=== PATIENT | male | born 1965 | race Caucasian/White ===

== ENCOUNTER 2020-06-07 12:49 | Inpatient (IN) | payer OTHER, SELFPAY ==
[2020-06-07] VITALS (9 sets, daily range): BP systolic 150–167; BP diastolic 88–115; PULSE 88–104; RESP 16–18; TEMP 36.4–37.3; O2SAT 94–99; BMI 33.7; BMI 33.0; BMI 33.1
--- NOTE | 2020-06-07 13:00 | CT_ITS ---
STUDY: CT SOFT TISSUE NECK WITH CONTRAST REASON FOR EXAM: Male, 55 years old. RIGHT SIDED NECK ABSCESS. H/O BACKED UP SALIVARY GLAND 2 WKS AGO. SUCKED ON LEMON AND IT WENT AWAY, CAME BACK WORSE. RADIATION DOSAGE (If Supplied By Facility): CTDIvol = ( 18.58 ) mGy, DLP = ( 589.57 ) mGycm TECHNIQUE: The patient was scanned in a multi-detector CT scanner. High resolution transaxial imaging was performed following intravenous administration of IV 100mL Isovue-370. Sagittal and coronal images were reconstructed. Individualized dose optimization techniques were used for this CT. COMPARISON: None. FINDINGS: Normal bilateral parotid glands. Normal bilateral accelerator technician spaces. Normal bilateral parapharyngeal spaces. Normal bilateral carotid spaces. There is diffuse inhomogeneous enlargement of the right submandibular gland. There is a 1.8 cm x 1.5 cm rounded density of decreased attenuation in the superior medial portion of the gland. Abscess should be excluded. There is evidence of the diffuse thickening of the overlying skin on the right mandibular region as well as diffuse inflammatory changes in the surrounding subcutaneous tissues. There is enlargement of the right submandibular lymph nodes. Inflammatory changes extend into the soft tissues along the medial aspect of the right mandible. Normal visualized nasopharynx. Normal retropharyngeal space. Normal perivertebral space. Normal visualized bilateral faucial tonsils. The visualized tongue, tongue base and oropharynx are normal. There are minimally enlarged lymph nodes of the neck, with preservation of normal butch architecture, consistent with a reactive lymph hyperplasia. There is no demonstrated solid or cystic mass lesion. There is no abnormal contrast enhancement. Normal epiglottis, bilateral vallecula and hypopharynx. The pre-epiglottic and paraglottic adipose spaces are normal. Normal visualized bilateral piriform sinuses, aryepiglottic folds, vocal cords, and arytenoid-cricoid articulations. Normal subglottic trachea. Normal bilateral lobes of the thyroid gland. Normal visualized pulmonary apices. Normal visualized paranasal sinuses. There is degenerative changes of the cervical spine. CT/Soft Tissue Neck WITH Contrast IMPRESSION: Diffuse enlargement of the right submandibular gland with findings suggestive of a localized abscess along its superior medial portion. There is evidence of surrounding inflammatory changes involving the skin and subcutaneous tissues. This extends into the medial aspect of the right mandible. Enlarged lymph nodes. Electronically Signed: Case Rose, at 13:57 EST , Service support ,
--- NOTE | 2020-06-07 13:04 | ED.VISSUMM ---
- ER Visit Summary Date of Service: 06/07/20 Chief Complaint: Neck abscess History of Present Illness: The patient is a 55 M who has an abscess on the right side of the neck. He has been following with Dr. Campos with ENT. He has been on Augmentin at home. Initially he started to have some improvement with this but now is getting worse. It is on the right side of his neck. When he woke up today he was concerned that it may be impinging on his airway as he has having some issues swallowing. He spoke with his ear nose and throat doctor who directed him here for further evaluation. He has not had any imaging studies yet for this. He has not had a fever with this. Physical Examination: Vital signs reviewed. HEENT exam reveals pupils that are equal. Extraocular motions are intact. He does have moist mucous membranes. His throat is nonerythematous. He is handling his secretions normally. His neck does have an abscess and mass on the right side which is erythematous on the skin. It is firm and not particularly mobile. It measures about 7 x 7 cm. He does have trismus. Heart is regular rate and rhythm. Lungs are clear. Abdomen is soft. Skin exam shows the erythema around this mass on the right side of the neck. His GCS is 15. His phonation is normal. Speech is clear without dysarthria. He has no other neurologic deficits. Test Results: White blood cell count 9.9. BUN 22. Creatinine normal. CT scan reveals a right submandibular gland abscess with surrounding inflammatory changes. Emergency Department Course and Treatment: The patient will be given IV doses of Decadron and Unasyn. I did discuss with Dr. Campos with ENT. He is want to see the patient here in the emergency department. He would like the patient admitted for some IV antibiotics as well. I did discuss with hospitalist for admission. Treatment Plan: [] Disposition: Discharge Impression: Right submandibular gland abscess Failure of outpatient treatment This note was generated with [employer] dictation software. It may contain incorrect words, spelling, and punctuation that were not noted in review of the chart prior to signing ED Disposition - Plan for ED Patient: Referrals: Renata Palencia DO [Primary Care Provider] -
[2020-06-07 13:21] LABS: Absolute Lymphocyte Count 1.11 X10^3/uL (0.83-4.51); Absolute Neutrophil Count 7.7 X10^3/uL (2.0-7.7); Basophil# 0.03 X10^3/uL; Basophil% 0.3 % (0-1); Eosinophil# 0.03 X10^3/uL; Eosinophils% 0.3 % (0-5); Hematocrit 41.4 % (40-54); Hemoglobin 13.2 g/dL (13.0-16.5); Lymphocyte # 1.11 X10^3/ul (4.0); Lymphocyte % 11.2 % (19-41); Mean Corp Hgb Conc 31.9 g/dL (32-36); Mean Corpuscular Hgb 31.5 pg (27.0-32.0); Mean Corpuscular Volume 98.8 fL (80-94); Mean Platelet Vol. 8.6 fl (6.2-12.0); Monocyte# 0.97 X10^3/uL; Monocyte% 9.8 % (0-10); NRBC Flagged by Analyzer 0 % (0-5); Neutrophil # 7.67 X10^3/uL (2.7-7.7); Neutrophil % 77.8 % (47-70); Platelet Count 298 K/mm3 (150-450); RBC Distribution Width CV 11.8 % (11.6-14.6); RBC Distribution Width SD 42.6 fl (35.1-43.9); Red Blood Count 4.19 M/mm3 (4.6-6.2); White Blood Count 9.9 K/mm3 (4.4-11.0)
[2020-06-07 13:30] LABS: Anion Gap 7 (5-15); BUN 22 mg/dL (7-18); BUN/Creat Ratio 17.3 RATIO (10-20); Calcium,Total 8.6 mg/dL (8.5-10.1); Chloride 103 mmol/L (98-107); Creatinine, Serum 1.27 mg/dL (0.70-1.30); EST Glomerular Filtration Rate 63 mL/min (>60); Est Glom Filt Rate - Afr Amer 76 mL/min (>60); Glucose 92 mg/dL (74-106); Potassium 3.7 mmol/L (3.5-5.1); Sodium Level 138 mmol/L (136-145)
[2020-06-07] MEDS: dexAMETHasone 10 MG/ML Vial IV (14:08)
--- NOTE | 2020-06-07 14:35 | HP.PCM_ITS ---
Problem List (1) Right submandibular abscess Status: Acute (2) GERD (gastroesophageal reflux disease) Status: Chronic (3) Hyperlipidemia Status: Chronic (4) Hypertension Status: Chronic History of Present Illness Date of Admission: 06/07/20 Chief Complaint: Right facial pain, swelling. The patient is a 55 year old M with past medical history as mentioned above presented to the emergency room because of swelling and pain on the right side of his face. His symptoms started around 2 and half weeks ago with swelling of the right mandibular region, has been progressive, associated with erythema overlying the right side of his face and without aggravating or relieving factors. He saw his PCP and he was instructed to use gum and this is probably because of obstruction of the salivary gland. Patient continued to have increasing swelling and pain of the right side of his face. His main complaint today is the pain on the right side of his face, dull aching pain, constant pain, 6 out of 10 in severity, aggravated by eating and talking, not relieved with rest and associated with increasing erythema overlying the right side of his face. 5 days ago, he was seen by ENT as outpatient, was given Augmentin and prednisone. Initially, he felt some improvement of the swelling of the right face and since yesterday, the swelling and pain has been getting worse. Today, he decided to come to the emergency department. In the emergency department, patient was afebrile, blood pressure was elevated, other vital signs were st able. Routine blood work was unremarkable. CT scan of the soft tissue neck with contrast revealed diffuse enlargement of the right submandibular gland and findings suggestive of abscess along the superior medial portion. Patient is being admitted for right submandibular abscess with failure of outpatient treatment. Past Medical History Past Medical History (Chronic Problems): Chronic Problems GERD (gastroesophageal reflux disease) (Chronic) Hyperlipidemia (Chronic) Hypertension (Chronic) Allergies codeine Adverse Reaction (Verified 06/07/20 12:50) Vomiting Home Medications: Ambulatory Orders Medication Instructions Recorded Amoxicillin/Potassium Clav 1 ea PO BID 06/07/20 [Amox-Clav 875-125 mg Tablet] Ibuprofen 800 mg PO Q6H PRN PRN 06/07/20 Lisinopril [Zestril] 40 mg PO DAILY 06/07/20 Omeprazole 40 mg PO DAILY 06/07/20 Simvastatin [Zocor] 20 mg PO QHS 06/07/20 Surgical History: no surgical history Psychiatric History: No pertinent psych hx Lives: Spouse/ Significant Other Smoking Status: Never smoker Alcohol: Occasional Drugs: None - *Family History Maternal History Items: No pertinent history Paternal History Items: No pertinent history Review of Systems Constitutional: Denies: Anorexia, Chills, Fever, Weakness Eyes: Denies: Blurred vision, Double vision, Drainage, Redness HEENT: Denies: Difficulty Hearing, Dysphasia, Ear Pain, Nasal Congestion, Sore Throat Cardiovascular: Denies: Chest Pain, Claudication, Chest Pressure, Heaviness, Light Headedness, Syncope Respiratory: Denies: Cough, Pleuritic Pain, Shortness of Breath, Sputum production, Wheezing Gastrointestinal: Denies: Abdominal Pain, Constipation, Diarrhea, Nausea, Vomiting Genitourinary: Denies: Dysuria, Frequency, Hematuria Musculoskeletal: Denies: Arm Pain, Back Pain, Foot Pain Skin: Denies: Dryness, Rash Neurological: Denies: Balance problems, Blurred vision, Double vision, Change in Speech, Confusion, Headaches, Numbness Psychiatric: Denies: Anxiety, Depression Endocrine: Denies: Change in Body Habitus, Polydipsia, Polyuria VTE Information - Inpt Only VTE Present on Admission: No VTE Mechan Device Prophylaxis: None VTE Pharm Prophylaxis ordered?: No Patient Problems: Active and Suspected Problems Right submandibular abscess (Acute) - Physical Exam Vitals/I&O's: Vital Signs Temp Pulse Resp BP Pulse Ox 98.6 F 91 17 161/101 H 98 06/07/20 14:33 06/07/20 14:33 06/07/20 14:33 06/07/20 14:33 06/07/20 14:33 Oxygen Delivery Method Room Air Weight: 270 lb 8.115 oz Body Mass Index (BMI) 33.7 General: Alert, Oriented x3, Cooperative, No apparent distress HEENT: Atraumatic, PERRLA, EOMI, Normocephalic - Significant diffuse, - - swelling and erythema on the right submandibular region, tender to palpation, no open wounds. Oral: Moist Mucosa, No Gingival or Mucosal Lesions/ Ulcerations, - - Diffuse swelling of the right buccal mucosa. Neck: Supple, No JVD, Negative Carotid Bruits, Trachea Midline, Thyroid Normal Size and Texture Lungs: Clear to auscultation, Normal air movement, No rhonchi, No wheeze, No rales Cardiovascular: Regular rate, Regular Rhythm, Normal S1, Normal S2, PMI Normal Abdomen: Bowel Sounds Present, Soft, Non Tender, Non-Distended, No Hepato- splenomegaly, Obese Extremities: No clubbing, No cyanosis, No edema Skin: No rashes, No breakdown Lymphatic: No Cervical, Supraclavicular, or Inguinal Adenopathy Neurological: Cranial nerves II-XII grossly intact, Motor Exam 5/5 strength throughout Psych/Mental Status: Normal Affect, Appropriate, Alert and oriented to time, place, person, mood and affect Laboratory Results 06/07/20 13:05: WBC 9.9, RBC 4.19 L, Hgb 13.2, Hct 41.4, MCV 98.8 H, MCH 31.5, MCHC 31.9 L, RDW Std Deviation 42.6, RDW Coeff of Rafa 11.8, Plt Count 298, MPV 8.6, Immature Gran % (Auto) 0.600, Neut % (Auto) 77.8 H, Lymph % (Auto) 11.2 L, [place] % (Auto) 9.8, Eos % (Auto) 0.3, Baso % (Auto) 0.3, Absolute Neuts (auto) 7.7, Absolute Lymphs (auto) 1.11, Nucleated RBC % 0 06/07/20 13:05: Sodium 138, Potassium 3.7, Chloride 103, Carbon Dioxide 28.0, Anion Gap 7, BUN 22 H, Creatinine 1.27, Estim Creat Clear Calc 80.40, Est GFR (MDRD) Af Amer 76, Est GFR (MDRD) Non-Af 63, BUN/Creatinine Ratio 17.3, Glucose 92, Calcium 8.6 Clinical Impression(s) from Imaging Studies Soft Tissue Neck CT 06/07/20 13:00 IMPRESSION: Diffuse enlargement of the right submandibular gland with findings suggestive of a localized abscess along its superior medial portion. There is evidence of surrounding inflammatory changes involving the skin and subcutaneous tissues. This extends into the medial aspect of the right mandible. Enlarged lymph nodes. Electronically Signed: Case Rose, at 13:57 EST , Service support , Current Medications Ampicillin Sodium/Sulbactam (Sodium 3 gm/ Sodium Chloride) 112 mls @ 150 mls/hr IV X1 ONE Stop: 06/07/20 14:45 Last Admin: 06/07/20 14:32 Dose: 150 mls/hr Documented by: Assessment/Plan All Active Problems Right submandibular abscess (Acute) This is a 55 years old male patient presented to the emergency room because of increasing swelling, pain and erythema on the right side of his face after he has been on Augmentin and prednisone for 4 days without improvement, found to have right submandibular abscess and he is being admitted for treatment. #1 right submandibular abscess: CT scan neck soft tissue reviewed. No evidence of sepsis or severe sepsis. Patient was on Augmentin and prednisone for 4 days, there was some improvement initially but later, local swelling and pain worsened. Outpatient treatment failed. Patient received 1 dose of IV Decadron in the ED. [facility] fluids, start IV Unasyn, Tylenol as needed, OxyIR as needed, IV Toradol every 8 hours, repeat CBC and BMP tomorrow morning, ENT consult. ENT recommended to consult maxillofacial surgery. #2 hypertension: Blood pressure was elevated in the ED, continue lisinopril, start IV hydralazine as needed. #3 hyperlipidemia: Continue statins. #4 GERD: Continue PPI. #5 DVT prophylaxis: Low risk patient, no prophylaxis indicated. This note was generated with [employer] dictation software. It may contain incorrect words, spelling, and punctuation that were not noted in checking the note before signing. Inpatient E&M: 58340 Init Hosp L2
--- NOTE | 2020-06-07 14:57 | PCM.CONS.GEN ---
Problem List (1) Right submandibular abscess Status: Acute Reason for Consult Date of Consultation: 06/07/20 History of Present Illness: The patient is a 55 year old M with a right neck collection. presented to outside urgent care 2 wks ago, was diagnosed with sialadenitis and told to use sialogogues. no antibiotics. progressive worsening. presented to [facility] of last week (4 days ago) with global neck induration, no palpable abscess (because of edema) and trismus. augmentin/medrol were started. sunday he returned with a focal submandibular area, but significant improvement. states that he has had increased pain today. denies dysphagia, no voice changes or dyspnea. Past Medical History Past Medical History (Chronic Problems): Chronic Problems GERD (gastroesophageal reflux disease) (Chronic) Hyperlipidemia (Chronic) Hypertension (Chronic) Allergies codeine Adverse Reaction (Verified 06/07/20 12:50) Vomiting Home Medications: Ambulatory Orders Medication Instructions Recorded Amoxicillin/Potassium Clav 1 ea PO BID 06/07/20 [Amox-Clav 875-125 mg Tablet] Ibuprofen 800 mg PO Q6H PRN PRN 06/07/20 Lisinopril [Zestril] 40 mg PO DAILY 06/07/20 Omeprazole 40 mg PO DAILY 06/07/20 Simvastatin [Zocor] 20 mg PO QHS 06/07/20 Surgical History: no surgical history Psychiatric History: No pertinent psych hx Lives: Spouse/ Significant Other Smoking Status: Never smoker Alcohol: Occasional Drugs: None - *Family History Maternal History Items: No pertinent history Paternal History Items: No pertinent history Review of Systems Constitutional: Denies: Chills, Fever HEENT: Reports: Sore Throat. Denies: Difficulty Hearing, Sinus Drainage Cardiovascular: Denies: Chest Pain, Palpitations Respiratory: Denies: Cough, Shortness of breath at rest, Sputum production Gastrointestinal: Denies: Abdominal Pain, Nausea, Vomiting Genitourinary: Denies: Dysuria Patient Problems: Active and Suspected Problems Right submandibular abscess (Acute) Subjective: x - Physical Exam Vitals/I&O's: Vital Signs Temp Pulse Resp BP Pulse Ox 98.6 F 91 17 161/101 H 98 06/07/20 14:33 06/07/20 14:33 06/07/20 14:33 06/07/20 14:33 06/07/20 14:33 Oxygen Delivery Method Room Air Weight: 122.7 kg Body Mass Index (BMI) 33.7 General: Alert, Oriented x3 Oral: Moist Mucosa, - - trismus to 1cm Neck: - - right submandibular induration / collection Lungs: - - no stridor or turbulent breathing Abdomen: Soft, Non Tender, Non-Distended Laboratory Results 06/07/20 13:05: WBC 9.9, RBC 4.19 L, Hgb 13.2, Hct 41.4, MCV 98.8 H, MCH 31.5, MCHC 31.9 L, RDW Std Deviation 42.6, RDW Coeff of Rafa 11.8, Plt Count 298, MPV 8.6, Immature Gran % (Auto) 0.600, Neut % (Auto) 77.8 H, Lymph % (Auto) 11.2 L, [place] % (Auto) 9.8, Eos % (Auto) 0.3, Baso % (Auto) 0.3, Absolute Neuts (auto) 7.7, Absolute Lymphs (auto) 1.11, Nucleated RBC % 0 06/07/20 13:05: Sodium 138, Potassium 3.7, Chloride 103, Carbon Dioxide 28.0, Anion Gap 7, BUN 22 H, Creatinine 1.27, Estim Creat Clear Calc 80.40, Est GFR (MDRD) Af Amer 76, Est GFR (MDRD) Non-Af 63, BUN/Creatinine Ratio 17.3, Glucose 92, Calcium 8.6 Current Medications Sodium Chloride (0.9% Saline Lock 10 Ml Syringe) 10 - 40 ml IV UD PRN PRN Reason: SALINE FLUSH Assessment/Plan All Active Problems Right submandibular abscess (Acute) 55 year old male with right cervical collection -afebrile, WBC 9k. will reevaluate after 24 hours of IV antibiotics. initially responded to oral antibiotics. 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 -likely odontogenic in origin - would appreciate OMFS recs. he has a right maxillary molar that has recently given him issues and looks questionable on the saggital CT images
[2020-06-07] MEDS: 0.9% Normal Saline 1,000 ML 100 ML IV ×2 (15:22→21:27)
[2020-06-07] MEDS: 0.9% Saline Lock 10 ML Syringe IV (15:48)
[2020-06-07] MEDS: hydrALAZINE 20 MG/ML Vial 10 MG IV (15:48)
[2020-06-07] MEDS: oxyCODONE 5 MG Tablet PO (15:48)
[2020-06-07] MEDS: Ketorolac 30 MG/ML Syringe IV ×2 (15:59→21:24)
--- NOTE | 2020-06-07 17:34 | NURSING ---
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
[2020-06-07] MEDS: Atorvastatin Calcium 10 MG Tablet PO (21:25)
[2020-06-08] VITALS (9 sets, daily range): BP systolic 142–165; BP diastolic 82–104; PULSE 79–103; RESP 18; TEMP 36.4–37.3; O2SAT 95–98; BMI 33.0
[2020-06-08] MEDS: hydrALAZINE 20 MG/ML Vial 10 MG IV ×2 (03:53→18:16)
[2020-06-08] MEDS: Ketorolac 30 MG/ML Syringe IV ×3 (05:38→21:12)
[2020-06-08 05:55] LABS: Absolute Lymphocyte Count 0.94 X10^3/uL (0.83-4.51); Absolute Neutrophil Count 7.1 X10^3/uL (2.0-7.7); Basophil# 0.01 X10^3/uL; Basophil% 0.1 % (0-1); Hemoglobin 12.9 g/dL (13.0-16.5); Lymphocyte # 0.94 X10^3/ul (4.0); Lymphocyte % 10.7 % (19-41); Mean Corp Hgb Conc 33.1 g/dL (32-36); Mean Corpuscular Hgb 32.2 pg (27.0-32.0); Mean Corpuscular Volume 97.3 fL (80-94); Mean Platelet Vol. 9.1 fl (6.2-12.0); Monocyte# 0.66 X10^3/uL; Monocyte% 7.5 % (0-10); NRBC Flagged by Analyzer 0 % (0-5); Neutrophil # 7.06 X10^3/uL (2.7-7.7); Neutrophil % 80.4 % (47-70); Platelet Count 299 K/mm3 (150-450); RBC Distribution Width CV 11.5 % (11.6-14.6); Red Blood Count 4.01 M/mm3 (4.6-6.2); White Blood Count 8.8 K/mm3 (4.4-11.0)
[2020-06-08 06:20] LABS: Anion Gap 7 (5-15); BUN 23 mg/dL (7-18); Calcium,Total 8.3 mg/dL (8.5-10.1); Chloride 106 mmol/L (98-107); EST Glomerular Filtration Rate 83 mL/min (>60); Est Glom Filt Rate - Afr Amer 100 mL/min (>60); Glucose 114 mg/dL (74-106); Potassium 3.9 mmol/L (3.5-5.1); Sodium Level 137 mmol/L (136-145)
--- NOTE | 2020-06-08 07:31 | PN_ITS ---
Patient Problems: Active and Suspected Problems Right submandibular abscess (Acute) Reason for Visit: Right submandibular abscess Subjective: Patient is a 55-year-old gentleman admitted with right facial pain with jaw swelling. Imaging studies obtained on admission was consistent with right submandibular abscess admitted to regular nursing floor for further management Objective: GENERAL: cooperative HEENT: Atraumatic; an area of induration under the right mandible EYES; Anicteric, Normal Conjunctiva NECK; supple, normal thyroid, RESPIRATORY: Diminished to auscultation CARDIOVASCULAR: Regular S1 S2, GI: soft, normoactive bowel sounds, : No Renal angle tenderness; EXTREMITIES: No edema, no clubbing, MUSCULOSKELETAL: no muscle waisting NEURO: Awake; no lateralizing signs. SKIN: No Rash PSYCH; Flat affect Vitals/I&O's: Vital Signs Temp Pulse Resp BP Pulse Ox 97.6 F L 79 18 161/97 H 98 06/08/20 03:50 06/08/20 03:53 06/08/20 03:50 06/08/20 03:53 06/08/20 03:50 Oxygen Delivery Method Room Air Weight: 120.021 kg Body Mass Index (BMI) 33.0 Intake and Output for Last 24 Hours 06/06/20 06/07/20 06/08/20 23:59 23:59 23:59 Intake Total 832.33 / 1482.33 2079.33 / 2079.33 Balance 832.33 / 1482.33 2079. / 2079. Laboratory Results 06/07/20 13:05: WBC 9.9, RBC 4.19 L, Hgb 13.2, Hct 41.4, MCV 98.8 H, MCH 31.5, MCHC 31.9 L, RDW Std Deviation 42.6, RDW Coeff of Rafa 11.8, Plt Count 298, MPV 8.6, Immature Gran % (Auto) 0.600, Neut % (Auto) 77.8 H, Lymph % (Auto) 11.2 L, [place] % (Auto) 9.8, Eos % (Auto) 0.3, Baso % (Auto) 0.3, Absolute Neuts (auto) 7.7, Absolute Lymphs (auto) 1.11, Nucleated RBC % 0 06/07/20 13:05: Sodium 138, Potassium 3.7, Chloride 103, Carbon Dioxide 28.0, Anion Gap 7, BUN 22 H, Creatinine 1.27, Estim Creat Clear Calc 80.40, Est GFR (MDRD) Af Amer 76, Est GFR (MDRD) Non-Af 63, BUN/Creatinine Ratio 17.3, Glucose 92, Calcium 8.6 06/08/20 05:25: WBC 8.8, RBC 4.01 L, Hgb 12.9 L, Hct 39.0 L, MCV 97.3 H, MCH 32.2 H, MCHC 33.1, RDW Std Deviation 41.0, RDW Coeff of Rafa 11.5 L, Plt Count 299, MPV 9.1, Immature Gran % (Auto) 1.300 H, Neut % (Auto) 80.4 H, Lymph % (Auto) 10.7 L, [place] % (Auto) 7.5, Eos % (Auto) 0.0, Baso % (Auto) 0.1, Absolute Neuts (auto) 7.1, Absolute Lymphs (auto) 0.94, Nucleated RBC % 0 06/08/20 05:25: Sodium 137, Potassium 3.9, Chloride 106, Carbon Dioxide 24.0, Anion Gap 7, BUN 23 H, Creatinine 1.00, Estim Creat Clear Calc 102.10, Est GFR (MDRD) Af Amer 100, Est GFR (MDRD) Non-Af 83, BUN/Creatinine Ratio 23.0 H, Glucose 114 H, Calcium 8.3 L Current Medications Acetaminophen (Acetaminophen 325 Mg Tablet) 650 mg PO Q6H PRN PRN PRN Reason: Pain Score 1-10/Temp > 100.7 F Atorvastatin Calcium (Atorvastatin Calcium 10 Mg Tablet) 10 mg PO QHS [facility] Last Admin: 06/07/20 21:25 Dose: 10 mg Documented by: Hydralazine HCl (Hydralazine 20 Mg/Ml Vial) 10 mg IV Q6H PRN PRN PRN Reason: for SBP>160 Last Admin: 06/08/20 03:53 Dose: 10 mg Documented by: Sodium Chloride () 1,000 mls @ 100 mls/hr IV .Q10H [facility] Stop: 06/08/20 11:11 Last Infusion: 06/08/20 05:38 Dose: Infused Documented by: Ampicillin Sodium/Sulbactam (Sodium 3 gm/ Sodium Chloride) 112 mls @ 150 mls/hr IV Q8 [facility] Last Infusion: 06/08/20 06:23 Dose: Infused Documented by: Ketorolac Tromethamine (Ketorolac 30 Mg/Ml Syringe) 30 mg IV Q8 [facility] Stop: 06/12/20 22:01 Last Admin: 06/08/20 05:38 Dose: 30 mg Documented by: Lisinopril (Lisinopril 40 Mg Tablet) 40 mg PO DAILY [facility] Nutritional Formula (Lactose Free) (Ensure Enlive 120 Ml Liquid) 120 ml PO 4X/DAY [facility] Last Admin: 06/07/20 21:25 Dose: 120 ml Documented by: Ondansetron HCl (Ondansetron 4 Mg/2 Ml Vial) 4 mg IV Q8H PRN PRN PRN Reason: NAUSEA/VOMITING Oxycodone HCl (Oxycodone 5 Mg Tablet) 5 mg PO Q4H PRN PRN PRN Reason: Pain Score 4-5 Last Admin: 06/07/20 15:48 Dose: 5 mg Documented by: Pantoprazole Sodium (Pantoprazole Sodium 40 Mg Tablet) 40 mg PO DAILY [facility] Senna/Docusate Sodium (Senna/Docusate Sodium 1 Tablet) 2 tablet PO BID PRN PRN PRN Reason: Constipation Zolpidem Tartrate (Zolpidem Tartrate 5 Mg Tablet) 5 mg PO QHS PRN PRN PRN Reason: INSOMNIA STROKE Vital Signs/Narrative: Vital Signs Temp Pulse Resp BP Pulse Ox 06/08/20 03:53 79 161/97 H 06/08/20 03:50 97.6 F L 79 18 161/97 H 98 Medical Necessity - Tobacco Use Smoking Status: Former smoker Tobacco Use: Chew Assessment/Plan All Active Problems Right submandibular abscess (Acute) Patient is a 55-year-old gentleman admitted with right facial pain with jaw swelling. Imaging studies obtained on admission was consistent with right submandibular abscess admitted to regular nursing floor for further management 1. Right submandibular abscess -CT of the head and neck obtained on admission demonstrated Diffuse enlargement of the right submandibular gland with findings suggestive of a localized abscess along its superior medial portion. There is evidence of surrounding inflammatory changes involving the skin and subcutaneous tissues. This extends into the medial aspect of the right mandible. Enlarged lymph nodes. Patient started on broad-spectrum antibiotic therapy with consultation placed to ENT who recommended consultation to be placed to maxillofacial surgery. Dr. Pandya maxillofacial surgeon is out of town. We will continue with current antibiotics and if patient condition worsens patient may need to be transferred to a tertiary care center 2. Hypertension - Blood pressure controlled, home medications continued with dose adjustment as needed 3. Dyslipidemia -Patient is on statin therapy, continued at home dose 4. GERD - PPI 5. Morbid obesity - With a BMI of 33.1 patient was counseled on weight reduction 6. DVT prophylaxis ?Low risk did encourage early ambulation Clinical Impression(s) from Imaging Studies Soft Tissue Neck CT 06/07/20 13:00 IMPRESSION: . Electronically Signed: Case Rose, at 13:57 EST , Service support , Active Medications Acetaminophen (Acetaminophen 325 Mg Tablet) 650 mg PO Q6H PRN PRN PRN Reason: Pain Score 1-10/Temp > 100.7 F Last Admin: 06/08/20 09:54 Dose: 650 mg Documented by: Atorvastatin Calcium (Atorvastatin Calcium 10 Mg Tablet) 10 mg PO QHS [facility] Last Admin: 06/07/20 21:25 Dose: 10 mg Documented by: Hydralazine HCl (Hydralazine 20 Mg/Ml Vial) 10 mg IV Q6H PRN PRN PRN Reason: for SBP>160 Last Admin: 06/08/20 03:53 Dose: 10 mg Documented by: Ampicillin Sodium/Sulbactam (Sodium 3 gm/ Sodium Chloride) 112 mls @ 150 mls/hr IV Q8 [facility] Last Infusion: 06/08/20 06:23 Dose: Infused Documented by: Ketorolac Tromethamine (Ketorolac 30 Mg/Ml Syringe) 30 mg IV Q8 [facility] Stop: 06/12/20 22:01 Last Admin: 06/08/20 05:38 Dose: 30 mg Documented by: Lisinopril (Lisinopril 40 Mg Tablet) 40 mg PO DAILY [facility] Last Admin: 06/08/20 09:39 Dose: 40 mg Documented by: Nutritional Formula (Lactose Free) (Ensure Enlive 120 Ml Liquid) 120 ml PO 4X/DAY [facility] Last Admin: 06/08/20 09:39 Dose: 120 ml Documented by: Ondansetron HCl (Ondansetron 4 Mg/2 Ml Vial) 4 mg IV Q8H PRN PRN PRN Reason: NAUSEA/VOMITING Oxycodone HCl (Oxycodone 5 Mg Tablet) 5 mg PO Q4H PRN PRN PRN Reason: Pain Score 4-5 Last Admin: 06/07/20 15:48 Dose: 5 mg Documented by: Pantoprazole Sodium (Pantoprazole Sodium 40 Mg Tablet) 40 mg PO DAILY [facility] Last Admin: 06/08/20 09:39 Dose: 40 mg Documented by: Senna/Docusate Sodium (Senna/Docusate Sodium 1 Tablet) 2 tablet PO BID PRN PRN PRN Reason: Constipation Zolpidem Tartrate (Zolpidem Tartrate 5 Mg Tablet) 5 mg PO QHS PRN PRN PRN Reason: INSOMNIA Inpatient E&M: [id number] [facility] Hosp L2
[2020-06-08] MEDS: Lisinopril 40 MG Tablet PO (09:39)
[2020-06-08] MEDS: Pantoprazole Sodium 40 MG Tablet PO (09:39)
[2020-06-08] MEDS: Acetaminophen 325 MG Tablet 650 MG PO (09:54)
--- NOTE | 2020-06-08 12:06 | PN_ITS ---
Patient Problems: Active and Suspected Problems Right submandibular abscess (Acute) Subjective: significant improvement - Physical Exam Vitals/I&O's: Vital Signs Temp Pulse Resp BP Pulse Ox 98.6 F 103 H 18 159/96 H 95 06/08/20 09:37 06/08/20 09:37 06/08/20 09:37 06/08/20 09:37 06/08/20 09:37 Oxygen Delivery Method Room Air Weight: 120.02 kg Body Mass Index (BMI) 33.0 Intake and Output for Last 24 Hours 06/06/20 06/07/20 06/08/20 23:59 23:59 23:59 Intake Total 832.33 / 1482.33 2079. / 2079. Balance 832.33 / 1482.33 2079. / General: Alert, Oriented x3 Oral: - - trismus resolved Neck: - - right indurated mass unchanged Laboratory Results 06/07/20 13:05: WBC 9.9, RBC 4.19 L, Hgb 13.2, Hct 41.4, MCV 98.8 H, MCH 31.5, MCHC 31.9 L, RDW Std Deviation 42.6, RDW Coeff of Rafa 11.8, Plt Count 298, MPV 8.6, Immature Gran % (Auto) 0.600, Neut % (Auto) 77.8 H, Lymph % (Auto) 11.2 L, [place] % (Auto) 9.8, Eos % (Auto) 0.3, Baso % (Auto) 0.3, Absolute Neuts (auto) 7.7, Absolute Lymphs (auto) 1.11, Nucleated RBC % 0 06/07/20 13:05: Sodium 138, Potassium 3.7, Chloride 103, Carbon Dioxide 28.0, Anion Gap 7, BUN 22 H, Creatinine 1.27, Estim Creat Clear Calc 80.40, Est GFR (MDRD) Af Amer 76, Est GFR (MDRD) Non-Af 63, BUN/Creatinine Ratio 17.3, Glucose 92, Calcium 8.6 06/08/20 05:25: WBC 8.8, RBC 4.01 L, Hgb 12.9 L, Hct 39.0 L, MCV 97.3 H, MCH 32.2 H, MCHC 33.1, RDW Std Deviation 41.0, RDW Coeff of Rafa 11.5 L, Plt Count 299, MPV 9.1, Immature Gran % (Auto) 1.300 H, Neut % (Auto) 80.4 H, Lymph % (Auto) 10.7 L, [place] % (Auto) 7.5, Eos % (Auto) 0.0, Baso % (Auto) 0.1, Absolute Neuts (auto) 7.1, Absolute Lymphs (auto) 0.94, Nucleated RBC % 0 06/08/20 05:25: Sodium 137, Potassium 3.9, Chloride 106, Carbon Dioxide 24.0, Anion Gap 7, BUN 23 H, Creatinine 1.00, Estim Creat Clear Calc 102.10, Est GFR (MDRD) Af Amer 100, Est GFR (MDRD) Non-Af 83, BUN/Creatinine Ratio 23.0 H, Glucose 114 H, Calcium 8.3 L Current Medications Acetaminophen (Acetaminophen 325 Mg Tablet) 650 mg PO Q6H PRN PRN PRN Reason: Pain Score 1-10/Temp > 100.7 F Last Admin: 06/08/20 09:54 Dose: 650 mg Documented by: Atorvastatin Calcium (Atorvastatin Calcium 10 Mg Tablet) 10 mg PO QHS [facility] Last Admin: 06/07/20 21:25 Dose: 10 mg Documented by: Hydralazine HCl (Hydralazine 20 Mg/Ml Vial) 10 mg IV Q6H PRN PRN PRN Reason: for SBP>160 Last Admin: 06/08/20 03:53 Dose: 10 mg Documented by: Ampicillin Sodium/Sulbactam (Sodium 3 gm/ Sodium Chloride) 112 mls @ 150 mls/hr IV Q8 [facility] Last Infusion: 06/08/20 06:23 Dose: Infused Documented by: Ketorolac Tromethamine (Ketorolac 30 Mg/Ml Syringe) 30 mg IV Q8 [facility] Stop: 06/12/20 22:01 Last Admin: 06/08/20 05:38 Dose: 30 mg Documented by: Lisinopril (Lisinopril 40 Mg Tablet) 40 mg PO DAILY [facility] Last Admin: 06/08/20 09:39 Dose: 40 mg Documented by: Nutritional Formula (Lactose Free) (Ensure Enlive 120 Ml Liquid) 120 ml PO 4X/DAY [facility] Last Admin: 11/03/20 09:39 Dose: 120 ml Documented by: Ondansetron HCl (Ondansetron 4 Mg/2 Ml Vial) 4 mg IV Q8H PRN PRN PRN Reason: NAUSEA/VOMITING Oxycodone HCl (Oxycodone 5 Mg Tablet) 5 mg PO Q4H PRN PRN PRN Reason: Pain Score 4-5 Last Admin: 06/07/20 15:48 Dose: 5 mg Documented by: Pantoprazole Sodium (Pantoprazole Sodium 40 Mg Tablet) 40 mg PO DAILY [facility] Last Admin: 06/08/20 09:39 Dose: 40 mg Documented by: Senna/Docusate Sodium (Senna/Docusate Sodium 1 Tablet) 2 tablet PO BID PRN PRN PRN Reason: Constipation Zolpidem Tartrate (Zolpidem Tartrate 5 Mg Tablet) 5 mg PO QHS PRN PRN PRN Reason: INSOMNIA Medical Necessity - Tobacco Use Smoking Status: Former smoker Tobacco Use: Chew Assessment/Plan All Active Problems Right submandibular abscess (Acute) 55 year old male with right submandibular abscess -dramatic improvement on IV antibiotics. complete resolution of trismus. -will likely need surgical intervention at some point; however, i would continue to reevaluate him q24 hrs given his improvement today.
--- NOTE | 2020-06-08 13:20 | CASEMGMT ---
RN CM Face to Face with patient for initial transition planning/care coordination assessment. RN CM introduced self and role at [facility]. Patient lying in bed, alert and oriented. Patient willing to participate in assessment and is able to answer all questions appropriately. Care providers, pharmacy, and demographics verified. Patient wishes to discharge home, denies need for home health at this time. Patient states he has no further needs or concerns at this time. CM to follow for discharge planning needs that may arise. PCP: Renata Plaencia Specialists: none Preferred Pharmacy: [facility] in [place], [place] with [facility] retail at discharge. Insurance: MMO Prescription Benefit: ues Living Will/HPOA: yes, daughter Almaz Shaw LNOK: daughter Living Arrangements: Patient lives alone in a 3 story home and is independent and able to ambulate stairs at home. Transportation: self, daughter DME/HHC: Patient denies DME or previous HHC. Disposition Plan: Patient to discharge home with family support and follow-up plans in place. Ysabel VELAZQUEZ, RN, CM
--- NOTE | 2020-06-08 14:20 | NT.THERAPY_ITS ---
Nutrition Therapy Report - History Nutrition Services has been consulted to:: Manage nutrient details of diet order Current diet / nutrition support order:: Cardiac/heart-healthy; 120 ml ensure enlive 4 x per day with medpass - Anthropometric Measurements Height:: 6 ft 3 in Weight:: 120 kg Body Mass Index (BMI):: 33.0 - Relevant Labs Relevant Labs:: RBC 4.01 M/mm3 (4.6-6.2) L 06/08/20 05:25 Hgb 12.9 g/dL (13.0-16.5) L 06/08/20 05:25 Hct 39.0 % (40-54) L 06/08/20 05:25 MCV 97.3 fL (80-94) H 06/08/20 05:25 MCH 32.2 pg (27.0-32.0) H 06/08/20 05:25 MCHC 31.9 g/dL (32-36) L 06/07/20 13:05 RDW Coeff of Rafa 11.5 % (11.6-14.6) L 06/08/20 05:25 Immature Gran % (Auto) 1.300 % (0.0-0.9) H 06/08/20 05:25 Neut % (Auto) 80.4 % (47-70) H 06/08/20 05:25 Lymph % (Auto) 10.7 % (19-41) L 06/08/20 05:25 BUN 23 mg/dL (7-18) H 06/08/20 05:25 BUN/Creatinine Ratio 23.0 RATIO (10-20) H 06/08/20 05:25 Glucose 114 mg/dL (74-106) H 06/08/20 05:25 Calcium 8.3 mg/dL (8.5-10.1) L 06/08/20 05:25 - Assessment Food / Nutrition-Related History:: Pt reports good appetite curently; much improved since head bellhop captain. Improved ability to eat-- consumed 100% of breakfast and noted that he was able to consume hard foods this am. Pt reports intake head bellhop captain was poor and worsened w/ his condition. Pt approving of Ensure, however admits to only drinking them sometimes. Pt reported UBW~ 275 lbs; CBW 264.6 lbs. Pt repo rts losing 20 lbs between May 20, 2020 and now d/t to pain when chewing/swallowing. Noted 3.7% wt loss in 2 weeks and <50% energy intake compared to estimated energy needs for >5 days which meet criteria for severe malnutrition for acute disease. -NFPA. [ End ] - Nutrition Diagnosis Problem / Etiology / Signs & Symptoms (PES):: Severe pro/adryan malnutrition in the context of acute illness related to difficulty chewing/swallowing as evidenced by <50% energy intake x past 5 days and ~3.7% wt loss x past 1-2 weeks. Evidence of Malnutrition Exists:: Yes Severe PCM:: Acute Illness - Nutrition Intervention Nutrition Prescription:: Estimated nutrition needs~[id number] kcal & ~105-120 gm pro/day - Food / Nutrient Delivery Interventions Summary of nutrition intervention:: Continue with cardiac diet & ensure enlive on medpass--encouraged increased intake at meals/ONS. If ensure w/medpass consumed will provide an additional 700 calories and 40 gm protein. Nutrition support ordered as / adjusted to:: No TF/TPN Nutrition education provided?: Yes - MNT Monitoring Further MNT monitoring and evaluation required?: Yes MNT Follow-up in:: 3-5 days - Elidia Trevizo, software development intern
[2020-06-08] MEDS: Atorvastatin Calcium 10 MG Tablet PO (21:12)
[2020-06-09 02:17] VITALS: BP 130/94; PULSE 80; RESP 16; TEMP 36.6; O2SAT 94
[2020-06-09 06:00] LABS: Hematocrit 38.8 % (40-54); Hemoglobin 12.4 g/dL (13.0-16.5); Mean Corpuscular Hgb 31.3 pg (27.0-32.0); Mean Platelet Vol. 8.8 fl (6.2-12.0); Platelet Count 303 K/mm3 (150-450); RBC Distribution Width CV 11.8 % (11.6-14.6); RBC Distribution Width SD 42.8 fl (35.1-43.9); Red Blood Count 3.96 M/mm3 (4.6-6.2); White Blood Count 7.5 K/mm3 (4.4-11.0)
[2020-06-09] MEDS: Ketorolac 30 MG/ML Syringe IV ×3 (06:09→21:44)
[2020-06-09] MEDS: 0.9% Saline Lock 10 ML Syringe IV ×4 (06:13→21:45)
[2020-06-09 06:26] LABS: Anion Gap 5 (5-15); BUN 30 mg/dL (7-18); BUN/Creat Ratio 22.9 RATIO (10-20); Calcium,Total 8.1 mg/dL (8.5-10.1); Chloride 106 mmol/L (98-107); Creatinine, Serum 1.31 mg/dL (0.70-1.30); EST Glomerular Filtration Rate 61 mL/min (>60); Est Glom Filt Rate - Afr Amer 74 mL/min (>60); Estimated Creatinine Clearance 77.94 ml/min; Glucose 100 mg/dL (74-106); Magnesium 2.2 mg/dL (1.6-2.6); Sodium Level 140 mmol/L (136-145)
--- NOTE | 2020-06-09 07:26 | PCM.PN.HOSP ---
Patient Problems: Active and Suspected Problems Right submandibular abscess (Acute) Reason for Visit: Right submandibular abscess Subjective: Seen still has significant induration involving the right submandibular region. Remains on broad-spectrum antibiotic therapy. Awaiting input from maxillofacial surgery. Objective: GENERAL: cooperative HEENT: Atraumatic; an area of induration under the right mandible EYES; Anicteric, Normal Conjunctiva NECK; supple, normal thyroid, RESPIRATORY: Diminished to auscultation CARDIOVASCULAR: Regular S1 S2, GI: soft, normoactive bowel sounds, : No Renal angle tenderness; EXTREMITIES: No edema, no clubbing, MUSCULOSKELETAL: no muscle waisting NEURO: Awake; no lateralizing signs. SKIN: No Rash PSYCH; Flat affect Vitals/I&O's: Vital Signs Temp Pulse Resp BP Pulse Ox 97.9 F 80 16 130/94 H 94 06/09/20 02:17 06/09/20 02:17 06/09/20 02:17 06/09/20 02:17 06/09/20 02:17 Oxygen Delivery Method Room Air Weight: 120 kg Body Mass Index (BMI) 33.0 Intake and Output for Last 24 Hours 06/07/20 06/08/20 06/09/20 23:59 23:59 23:59 Intake Total 832.33 / 1482.33 3454.33 / 3454.33 1264.25 / 1264.25 Output Total 850 / 850 1050 / 1050 Balance 832.33 / 1482.33 2604.33 / 2604.33 214.25 / 214.25 Laboratory Results 06/09/20 05:35: WBC 7.5, RBC 3.96 L, Hgb 12.4 L, Hct 38.8 L, MCV 98.0 H, MCH 31.3, MCHC 32.0, RDW Std Deviation 42.8, RDW Coeff of Rafa 11.8, Plt Count 303, MPV 8.8 06/09/20 05:35: Sodium 140, Potassium 4.0, Chloride 106, Carbon Dioxide 29.0, Anion Gap 5, BUN 30 H, Creatinine 1.31 H, Estim Creat Clear Calc 77.94, Est GFR (MDRD) Af Amer 74, Est GFR (MDRD) Non-Af 61, BUN/Creatinine Ratio 22.9 H, Glucose 100, Calcium 8.1 L, Magnesium 2.2 Current Medications Acetaminophen (Acetaminophen 325 Mg Tablet) 650 mg PO Q6H PRN PRN PRN Reason: Pain Score 1-10/Temp > 100.7 F Last Admin: 06/08/20 09:54 Dose: 650 mg Documented by: Atorvastatin Calcium (Atorvastatin Calcium 10 Mg Tablet) 10 mg PO QHS [facility] Last Admin: 06/08/20 21:12 Dose: 10 mg Documented by: Hydralazine HCl (Hydralazine 20 Mg/Ml Vial) 10 mg IV Q6H PRN PRN PRN Reason: for SBP>160 Last Admin: 06/08/20 18:16 Dose: 10 mg Documented by: Ampicillin Sodium/Sulbactam (Sodium 3 gm/ Sodium Chloride) 112 mls @ 150 mls/hr IV Q8 [facility] Last Infusion: 06/09/20 06:54 Dose: Infused Documented by: Sodium Chloride () 250 mls @ 15 mls/hr IV .[id number] PRN PRN Reason: Saline Flush Last Infusion: 06/09/20 06:54 Dose: 15 mls/hr Documented by: Sodium Chloride () 250 mls @ 15 mls/hr IV .[id number] PRN PRN Reason: Additional IVPB Infusion Ketorolac Tromethamine (Ketorolac 30 Mg/Ml Syringe) 30 mg IV Q8 [facility] Stop: 06/12/20 22:01 Last Admin: 06/09/20 06:09 Dose: 30 mg Documented by: Lisinopril (Lisinopril 40 Mg Tablet) 40 mg PO DAILY [facility] Last Admin: 06/08/20 09:39 Dose: 40 mg Documented by: Nutritional Formula (Lactose Free) (Ensure Enlive 120 Ml Liquid) 120 ml PO 4X/DAY [facility] Last Admin: 06/08/20 21:10 Dose: Not Given Documented by: Ondansetron HCl (Ondansetron 4 Mg/2 Ml Vial) 4 mg IV Q8H PRN PRN PRN Reason: NAUSEA/VOMITING Oxycodone HCl (Oxycodone 5 Mg Tablet) 5 mg PO Q4H PRN PRN PRN Reason: Pain Score 4-5 Last Admin: 06/07/20 15:48 Dose: 5 mg Documented by: Pantoprazole Sodium (Pantoprazole Sodium 40 Mg Tablet) 40 mg PO DAILY [facility] Last Admin: 06/08/20 09:39 Dose: 40 mg Documented by: Senna/Docusate Sodium (Senna/Docusate Sodium 1 Tablet) 2 tablet PO BID PRN PRN PRN Reason: Constipation Sodium Chloride (0.9% Saline Lock 10 Ml Syringe) 10 - 40 ml IV UD PRN PRN Reason: SALINE FLUSH Last Admin: 06/09/20 06:13 Dose: 10 ml Documented by: Zolpidem Tartrate (Zolpidem Tartrate 5 Mg Tablet) 5 mg PO QHS PRN PRN PRN Reason: INSOMNIA Medical Necessity - Tobacco Use Smoking Status: Former smoker Tobacco Use: Chew Assessment/Plan All Active Problems Right submandibular abscess (Acute) Patient is a 55-year-old gentleman admitted with right facial pain with jaw swelling. Imaging studies obtained on admission was consistent with right submandibular abscess admitted to regular nursing floor for further management 1. Right submandibular abscess -CT of the head and neck obtained on admission demonstrated Diffuse enlargement of the right submandibular gland with findings suggestive of a localized abscess along its superior medial portion. There is evidence of surrounding inflammatory changes involving the skin and subcutaneous tissues. This extends into the medial aspect of the right mandible. Enlarged lymph nodes. Patient started on broad-spectrum antibiotic therapy with consultation placed to ENT who recommended consultation to be placed to maxillofacial surgery. Dr. Pandya maxillofacial surgeon is out of town. We will continue with current antibiotics and if patient condition worsens patient may need to be transferred to a tertiary care center -06/09/2020. Seen still has significant induration involving the right submandibular region. Remains on broad-spectrum antibiotic therapy. Awaiting input from maxillofacial surgery. 2. Hypertension - Blood pressure controlled, home medications continued with dose adjustment as needed 3. Dyslipidemia -Patient is on statin therapy, continued at home dose 4. GERD - PPI 5. Morbid obesity - With a BMI of 33.1 patient was counseled on weight reduction 6. DVT prophylaxis ?Low risk did encourage early ambulation Inpatient E&M: [id number] [facility] Hosp L2
[2020-06-09 07:55] VITALS: BP 158/93; PULSE 95; RESP 16; TEMP 36.2; O2SAT 95
[2020-06-09 08:07] VITALS: O2SAT 96
[2020-06-09] MEDS: Lisinopril 40 MG Tablet PO (09:42)
[2020-06-09] MEDS: Pantoprazole Sodium 40 MG Tablet PO (09:42)
--- NOTE | 2020-06-09 10:19 | NURSING ---
called Dr. Pandya's office at this time to confirm he knows about the consult. Awating return call.
[2020-06-09 14:50] VITALS: BP 141/93; PULSE 89; RESP 16; TEMP 36.1; O2SAT 95
--- NOTE | 2020-06-09 15:13 | PN_ITS ---
Patient Problems: Active and Suspected Problems Right submandibular abscess (Acute) Subjective: no new complaints Objective: x - Physical Exam Vitals/I&O's: Vital Signs Temp Pulse Resp BP Pulse Ox 97.0 F L 89 16 141/93 H 95 06/09/20 14:50 06/09/20 14:50 06/09/20 14:50 06/09/20 14:50 06/09/20 14:50 Oxygen Delivery Method Room Air Weight: 120 kg Body Mass Index (BMI) 33.0 Intake and Output for Last 24 Hours 06/07/20 06/08/20 06/09/20 23:59 23:59 23:59 Intake Total 832.33 / 1482.33 3454.33 / 3454.33 1294.50 / 1294.50 Output Total 850 / 850 1050 / 1050 Balance 832.33 / 1482.33 2604.33 / 2604.33 244.50 / 244.50 General: Alert, Oriented x3 Neck: - - no change in right submandibular induration Laboratory Results 06/09/20 05:35: WBC 7.5, RBC 3.96 L, Hgb 12.4 L, Hct 38.8 L, MCV 98.0 H, MCH 31.3, MCHC 32.0, RDW Std Deviation 42.8, RDW Coeff of Rafa 11.8, Plt Count 303, MPV 8.8 06/09/20 05:35: Sodium 140, Potassium 4.0, Chloride 106, Carbon Dioxide 29.0, Anion Gap 5, BUN 30 H, Creatinine 1.31 H, Estim Creat Clear Calc 77.94, Est GFR (MDRD) Af Amer 74, Est GFR (MDRD) Non-Af 61, BUN/Creatinine Ratio 22.9 H, Glucose 100, Calcium 8.1 L, Magnesium 2.2 Current Medications Acetaminophen (Acetaminophen 325 Mg Tablet) 650 mg PO Q6H PRN PRN PRN Reason: Pain Score 1-10/Temp > 100.7 F Last Admin: 06/08/20 09:54 Dose: 650 mg Documented by: Atorvastatin Calcium (Atorvastatin Calcium 10 Mg Tablet) 10 mg PO QHS [facility] Last Admin: 06/08/20 21:12 Dose: 10 mg Documented by: Hydralazine HCl (Hydralazine 20 Mg/Ml Vial) 10 mg IV Q6H PRN PRN PRN Reason: for SBP>160 Last Admin: 06/08/20 18:16 Dose: 10 mg Documented by: Ampicillin Sodium/Sulbactam (Sodium 3 gm/ Sodium Chloride) 112 mls @ 150 mls/hr IV Q8 [facility] Last Admin: 06/09/20 13:29 Dose: 150 mls/hr Documented by: Sodium Chloride () 250 mls @ 15 mls/hr IV .[id number] PRN PRN Reason: Saline Flush Last Infusion: 06/09/20 13:29 Dose: 15 mls/hr Documented by: Sodium Chloride () 250 mls @ 15 mls/hr IV .[id number] PRN PRN Reason: Additional IVPB Infusion Ketorolac Tromethamine (Ketorolac 30 Mg/Ml Syringe) 30 mg IV Q8 [facility] Stop: 06/12/20 22:01 Last Admin: 06/09/20 13:29 Dose: 30 mg Documented by: Lisinopril (Lisinopril 40 Mg Tablet) 40 mg PO DAILY [facility] Last Admin: 06/09/20 09:42 Dose: 40 mg Documented by: Nutritional Formula (Lactose Free) (Ensure Enlive 120 Ml Liquid) 120 ml PO 4X/DAY [facility] Last Admin: 06/09/20 13:30 Dose: Not Given Documented by: Ondansetron HCl (Ondansetron 4 Mg/2 Ml Vial) 4 mg IV Q8H PRN PRN PRN Reason: NAUSEA/VOMITING Oxycodone HCl (Oxycodone 5 Mg Tablet) 5 mg PO Q4H PRN PRN PRN Reason: Pain Score 4-5 Last Admin: 06/07/20 15:48 Dose: 5 mg Documented by: Pantoprazole Sodium (Pantoprazole Sodium 40 Mg Tablet) 40 mg PO DAILY [facility] Last Admin: 06/09/20 09:42 Dose: 40 mg Documented by: Senna/Docusate Sodium (Senna/Docusate Sodium 1 Tablet) 2 tablet PO BID PRN PRN PRN Reason: Constipation Sodium Chloride (0.9% Saline Lock 10 Ml Syringe) 10 - 40 ml IV UD PRN PRN Reason: SALINE FLUSH Last Admin: 06/09/20 13:29 Dose: 10 ml Documented by: Zolpidem Tartrate (Zolpidem Tartrate 5 Mg Tablet) 5 mg PO QHS PRN PRN PRN Reason: INSOMNIA Medical Necessity - Tobacco Use Smoking Status: Former smoker Tobacco Use: Chew Assessment/Plan All Active Problems Right submandibular abscess (Acute) 55 year old male with 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 no change in exam from initial improvement. -appreciate input from dr martins
--- NOTE | 2020-06-09 16:21 | CON.PCM_ITS ---
Reason for Consult Date of Consultation: 06/09/20 Reason for Consultation: Evaluation right submandibular swelling/abscess History of Present Illness: The patient is a 55 year old Male admitted approximately 2 days ago for worsening swelling of the right submandibular region. He has been admitted for IV antibiotics. CT scan reveals right submandibular abscess. Past Medical History Past Medical History (Chronic Problems): Chronic Problems GERD (gastroesophageal reflux disease) (Chronic) Hyperlipidemia (Chronic) Hypertension (Chronic) Allergies codeine Adverse Reaction (Verified 06/07/20 12:50) Vomiting Home Medications: Ambulatory Orders Medication Instructions Recorded Amoxicillin/Potassium Clav 1 ea PO BID 06/07/20 [Amox-Clav 875-125 mg Tablet] Ibuprofen 800 mg PO Q6H PRN PRN 06/07/20 Lisinopril [Zestril] 40 mg PO DAILY 06/07/20 Omeprazole 40 mg PO DAILY 06/07/20 Simvastatin [Zocor] 20 mg PO QHS 06/07/20 Surgical History: no surgical history Psychiatric History: No pertinent psych hx Lives: Spouse/ Significant Other Smoking Status: Former smoker Tobacco Use: Chew Alcohol: Occasional Drugs: None - *Family History Maternal History Items: No pertinent history Paternal History Items: No pertinent history Patient Problems: Active and Suspected Problems Right submandibular abscess (Acute) - Physical Exam Vitals/I&O's: Vital Signs Temp Pulse Resp BP Pulse Ox 97.0 F L 89 16 141/93 H 95 06/09/20 14:50 06/09/20 14:50 06/09/20 14:50 06/09/20 14:50 06/09/20 14:50 Oxygen Delivery Method Room Air Weight: 120 kg Body Mass Index (BMI) 33.0 Intake and Output for Last 24 Hours 06/07/20 06/08/20 06/09/20 23:59 23:59 23:59 Intake Total 832.33 / 1482.33 3454.33 / 3454.33 1406.50 / 1406.50 Output Total 850 / 850 1050 / 1050 Balance 832.33 / 1482.33 2604.33 / 2604.33 356.50 / 356.50 Laboratory Results 06/09/20 05:35: WBC 7.5, RBC 3.96 L, Hgb 12.4 L, Hct 38.8 L, MCV 98.0 H, MCH 31.3, MCHC 32.0, RDW Std Deviation 42.8, RDW Coeff of Rafa 11.8, Plt Count 303, MPV 8.8 06/09/20 05:35: Sodium 140, Potassium 4.0, Chloride 106, Carbon Dioxide 29.0, Anion Gap 5, BUN 30 H, Creatinine 1.31 H, Estim Creat Clear Calc 77.94, Est GFR (MDRD) Af Amer 74, Est GFR (MDRD) Non-Af 61, BUN/Creatinine Ratio 22.9 H, Glucose 100, Calcium 8.1 L, Magnesium 2.2 Current Medications Acetaminophen (Acetaminophen 325 Mg Tablet) 650 mg PO Q6H PRN PRN PRN Reason: Pain Score 1-10/Temp > 100.7 F Last Admin: 06/08/20 09:54 Dose: 650 mg Documented by: Atorvastatin Calcium (Atorvastatin Calcium 10 Mg Tablet) 10 mg PO QHS [facility] Last Admin: 06/08/20 21:12 Dose: 10 mg Documented by: Hydralazine HCl (Hydralazine 20 Mg/Ml Vial) 10 mg IV Q6H PRN PRN PRN Reason: for SBP>160 Last Admin: 06/08/20 18:16 Dose: 10 mg Documented by: Ampicillin Sodium/Sulbactam (Sodium 3 gm/ Sodium Chloride) 112 mls @ 150 mls/hr IV Q8 [facility] Last Infusion: 06/09/20 14:15 Dose: Infused Documented by: Sodium Chloride () 250 mls @ 15 mls/hr IV .[id number] PRN PRN Reason: Saline Flush Last Infusion: 06/09/20 13:29 Dose: 15 mls/hr Documented by: Sodium Chloride () 250 mls @ 15 mls/hr IV .[id number] PRN PRN Reason: Additional IVPB Infusion Ketorolac Tromethamine (Ketorolac 30 Mg/Ml Syringe) 30 mg IV Q8 [facility] Stop: 06/12/20 22:01 Last Admin: 06/09/20 13:29 Dose: 30 mg Documented by: Lisinopril (Lisinopril 40 Mg Tablet) 40 mg PO DAILY [facility] Last Admin: 06/09/20 09:42 Dose: 40 mg Documented by: Nutritional Formula (Lactose Free) (Ensure Enlive 120 Ml Liquid) 120 ml PO 4X/DAY [facility] Last Admin: 06/09/20 13:30 Dose: Not Given Documented by: Ondansetron HCl (Ondansetron 4 Mg/2 Ml Vial) 4 mg IV Q8H PRN PRN PRN Reason: NAUSEA/VOMITING Oxycodone HCl (Oxycodone 5 Mg Tablet) 5 mg PO Q4H PRN PRN PRN Reason: Pain Score 4-5 Last Admin: 06/07/20 15:48 Dose: 5 mg Documented by: Pantoprazole Sodium (Pantoprazole Sodium 40 Mg Tablet) 40 mg PO DAILY [facility] Last Admin: 06/09/20 09:42 Dose: 40 mg Documented by: Senna/Docusate Sodium (Senna/Docusate Sodium 1 Tablet) 2 tablet PO BID PRN PRN PRN Reason: Constipation Sodium Chloride (0.9% Saline Lock 10 Ml Syringe) 10 - 40 ml IV UD PRN PRN Reason: SALINE FLUSH Last Admin: 06/09/20 13:29 Dose: 10 ml Documented by: Zolpidem Tartrate (Zolpidem Tartrate 5 Mg Tablet) 5 mg PO QHS PRN PRN PRN Reason: INSOMNIA Assessment/Plan All Active Problems Right submandibular abscess (Acute) Patient denies any dental pain. He was recently at his dentist and new radiographs (dental) were taken and other than some fillings no infectious process were found. On examination he has some involvement of the right sublingual region definite right sumandibular involvement, however, on intra- oral examination he does have a malposed tooth 32 with no inflammation or swelling s around the tooth suggestive of this as a source for the infection. In general there is significant edema generally adjacent to the gingival tissues if the tooth was the source. The tooth has no decay and he states he really does not feel it is the tooth when questioning him. I will call his dentist 06/10/20 and see if I can review the recent dental radiographs from their office, but I certainly think if ENT wants to surgically drain I think that is appropriate. At this time I feel odontogenic sources are probably not the causative factor for this patients abscess.
[2020-06-09] MEDS: Acetaminophen 325 MG Tablet 650 MG PO (17:35)
[2020-06-09 20:21] VITALS: BP 148/94; PULSE 85; RESP 16; TEMP 36.7; O2SAT 97
[2020-06-09 20:30] VITALS: PULSE 78
[2020-06-09] MEDS: Atorvastatin Calcium 10 MG Tablet PO (21:44)
[2020-06-10] VITALS (12 sets, daily range): BP systolic 125–174; BP diastolic 69–110; PULSE 68–100; RESP 14–18; TEMP 36.4–36.9; O2SAT 92–99; BMI 33.0
--- NOTE | 2020-06-10 00:41 | NURSING ---
Chanel RN assuming care at this time.
[2020-06-10] MEDS: Ketorolac 30 MG/ML Syringe IV ×3 (05:50→22:03)
[2020-06-10] MEDS: 0.9% Saline Lock 10 ML Syringe IV ×3 (05:50→22:03)
--- NOTE | 2020-06-10 06:00 | EKG12_ITS ---
Test Reason : AM EKG Blood Pressure : / mmHG Vent. Rate : 079 BPM Atrial Rate : 079 BPM P-R Int : 168 ms QRS Dur : 092 ms QT Int : 378 ms P-R-T Axes : 042 -02 016 degrees QTc Int : 433 ms Normal sinus rhythm Poor R wave progression Confirmed by CASSANDRA DELVALLE, SHELBIE ([id number]), editor trade journal BRYCE MEADOWS ([id number]) on 06/16/2020 9:01:33 AM Referred By: DR SPENCE Confirmed By:SHELBIE TRUJILLO MD
[2020-06-10 07:30] LABS: Hematocrit 39.9 % (40-54); Hemoglobin 12.7 g/dL (13.0-16.5); Mean Corp Hgb Conc 31.8 g/dL (32-36); Mean Corpuscular Hgb 30.9 pg (27.0-32.0); Mean Corpuscular Volume 97.1 fL (80-94); Mean Platelet Vol. 8.9 fl (6.2-12.0); Platelet Count 292 K/mm3 (150-450); RBC Distribution Width CV 11.6 % (11.6-14.6); RBC Distribution Width SD 41.8 fl (35.1-43.9); Red Blood Count 4.11 M/mm3 (4.6-6.2); White Blood Count 6.3 K/mm3 (4.4-11.0)
[2020-06-10 07:58] LABS: Anion Gap 4 (5-15); BUN 26 mg/dL (7-18); Calcium,Total 8.3 mg/dL (8.5-10.1); Chloride 106 mmol/L (98-107); EST Glomerular Filtration Rate 61 mL/min (>60); Est Glom Filt Rate - Afr Amer 74 mL/min (>60); Estimated Creatinine Clearance 78.54 ml/min; Glucose 103 mg/dL (74-106); Potassium 4.1 mmol/L (3.5-5.1); Sodium Level 140 mmol/L (136-145)
--- NOTE | 2020-06-10 08:02 | PN_ITS ---
Patient Problems: Active and Suspected Problems Right submandibular abscess (Acute) Reason for Visit: Right submandibular abscess Subjective: Patient still has significant swelling involving the right submandibular region. Case discussed with ENT Dr. Campos plan is for patient to undergo surgical I&D t Objective: GENERAL: cooperative HEENT: Atraumatic; an area of induration under the right mandible EYES; Anicteric, Normal Conjunctiva NECK; supple, normal thyroid, RESPIRATORY: Diminished to auscultation CARDIOVASCULAR: Regular S1 S2, GI: soft, normoactive bowel sounds, : No Renal angle tenderness; EXTREMITIES: No edema, no clubbing, MUSCULOSKELETAL: no muscle waisting NEURO: Awake; no lateralizing signs. SKIN: No Rash PSYCH; Flat affect Vitals/I&O's: Vital Signs Temp Pulse Resp BP Pulse Ox 97.8 F 69 14 127/69 H 99 06/10/20 02:00 06/10/20 02:00 06/10/20 02:00 06/10/20 02:00 06/10/20 02:00 Oxygen Delivery Method Room Air Weight: 120 kg Body Mass Index (BMI) 33.0 Intake and Output for Last 24 Hours 06/08/20 06/09/20 06/10/20 23:59 23:59 23:59 Intake Total 3454.33 / 3454.33 2118.50 / 2598.50 782.75 / 782.75 Output Total 850 / 850 1050 / 1050 Balance 2604.33 / 2604.33 1068.50 / 1548.50 782.75 / 782.75 Microbiology Past 72 Hours 06/10/20 04:27 Mucosa - Nose - Final Laboratory Results 06/10/20 07:00: WBC 6.3, RBC 4.11 L, Hgb 12.7 L, Hct 39.9 L, MCV 97.1 H, MCH 30.9, MCHC 31.8 L, RDW Std Deviation 41.8, RDW Coeff of Rafa 11.6, Plt Count 292, MPV 8.9 06/10/20 07:00: Sodium 140, Potassium 4.1, Chloride 106, Carbon Dioxide 30.0, Anion Gap 4 L, BUN 26 H, Creatinine 1.30, Estim Creat Clear Calc 78.54, Est GFR (MDRD) Af Amer 74, Est GFR (MDRD) Non-Af 61, BUN/Creatinine Ratio 20.0, Glucose 103, Calcium 8.3 L Current Medications Acetaminophen (Acetaminophen 325 Mg Tablet) 650 mg PO Q6H PRN PRN PRN Reason: Pain Score 1-10/Temp > 100.7 F Last Admin: 06/09/20 17:35 Dose: 650 mg Documented by: Atorvastatin Calcium (Atorvastatin Calcium 10 Mg Tablet) 10 mg PO QHS [facility]PL[facility]ED BY [facility] Last Admin: 06/09/20 21:44 Dose: 10 mg Documented by: Hydralazine HCl (Hydralazine 20 Mg/Ml Vial) 10 mg IV Q6H PRN PRN PRN Reason: for SBP>160 Last Admin: 06/08/20 18:16 Dose: 10 mg Documented by: Ampicillin Sodium/Sulbactam (Sodium 3 gm/ Sodium Chloride) 112 mls @ 150 mls/hr IV Q8 [facility] Last Infusion: 06/10/20 06:49 Dose: Infused Documented by: Sodium Chloride () 250 mls @ 15 mls/hr IV .[id number] PRN PRN Reason: Saline Flush Last Infusion: 06/10/20 07:22 Dose: 0 mls/hr Documented by: Sodium Chloride () 250 mls @ 15 mls/hr IV .[id number] PRN PRN Reason: Additional IVPB Infusion Ketorolac Tromethamine (Ketorolac 30 Mg/Ml Syringe) 30 mg IV Q8 [facility]PL[facility] BY [facility] Stop: 06/12/20 22:01 Last Admin: 06/10/20 05:50 Dose: 30 mg Documented by: Lisinopril (Lisinopril 40 Mg Tablet) 40 mg PO DAILY [facility] Last Admin: 06/09/20 09:42 Dose: 40 mg Documented by: Nutritional Formula (Lactose Free) (Ensure Enlive 120 Ml Liquid) 120 ml PO 4X/DAY [facility]PL[facility]ED BY [facility] Last Admin: 06/09/20 21:46 Dose: Not Given Documented by: Ondansetron HCl (Ondansetron 4 Mg/2 Ml Vial) 4 mg IV Q8H PRN PRN PRN Reason: NAUSEA/VOMITING Oxycodone HCl (Oxycodone 5 Mg Tablet) 5 mg PO Q4H PRN PRN PRN Reason: Pain Score 4-5 Last Admin: 06/07/20 15:48 Dose: 5 mg Documented by: Pantoprazole Sodium (Pantoprazole Sodium 40 Mg Tablet) 40 mg PO DAILY [facility] Last Admin: 06/09/20 09:42 Dose: 40 mg Documented by: Senna/Docusate Sodium (Senna/Docusate Sodium 1 Tablet) 2 tablet PO BID PRN PRN PRN Reason: Constipation Sodium Chloride (0.9% Saline Lock 10 Ml Syringe) 10 - 40 ml IV UD PRN PRN Reason: SALINE FLUSH Last Admin: 06/10/20 05:50 Dose: 10 ml Documented by: Zolpidem Tartrate (Zolpidem Tartrate 5 Mg Tablet) 5 mg PO QHS PRN PRN PRN Reason: INSOMNIA Medical Necessity - Tobacco Use Smoking Status: Former smoker Tobacco Use: Chew Assessment/Plan All Active Problems Right submandibular abscess (Acute) Patient is a 55-year-old gentleman admitted with right facial pain with jaw swelling. Imaging studies obtained on admission was consistent with right submandibular abscess admitted to regular nursing floor for further management 1. Right submandibular abscess -CT of the head and neck obtained on admission demonstrated Diffuse enlargement of the right submandibular gland with findings suggestive of a localized abscess along its superior medial portion. There is evidence of surrounding inflammatory changes involving the skin and subcutaneous tissues. This extends into the medial aspect of the right mandible. Enlarged lymph nodes. Patient started on broad-spectrum antibiotic therapy with consultation placed to ENT who recommended consultation to be placed to maxillofacial surgery. Dr. Pandya maxillofacial surgeon is out of town. We will continue with current antibiotics and if patient condition worsens patient may need to be transferred to a tertiary care center -06/09/2020. Seen still has significant induration involving the right submandi bular region. Remains on broad-spectrum antibiotic therapy. Awaiting input from maxillofacial surgery. -06/10/2020Patient still has significant swelling involving the right submandibular region. Case discussed with ENT Dr. Campos plan is for patient to undergo surgical I&D 2. Hypertension - Blood pressure controlled, home medications continued with dose adjustment as needed 3. Dyslipidemia -Patient is on statin therapy, continued at home dose 4. GERD - PPI 5. Morbid obesity - With a BMI of 33.1 patient was counseled on weight reduction 6. DVT prophylaxis ?Low risk did encourage early ambulation Inpatient E&M: [id number] [facility] Hosp L2
--- NOTE | 2020-06-10 08:31 | PCM.PROGNOTE ---
Patient Problems: Active and Suspected Problems Right submandibular abscess (Acute) Subjective: no new complaints - Physical Exam Vitals/I&O's: Vital Signs Temp Pulse Resp BP Pulse Ox 97.8 F 69 14 127/69 H 95 06/10/20 02:00 06/10/20 02:00 06/10/20 02:00 06/10/20 02:00 06/10/20 08:20 Oxygen Delivery Method Room Air Weight: 120 kg Body Mass Index (BMI) 33.0 Intake and Output for Last 24 Hours 06/08/20 06/09/20 06/10/20 23:59 23:59 23:59 Intake Total 3454.33 / 3454.33 2118.50 / 2598.50 782.75 / 782.75 Output Total 850 / 850 1050 / 1050 Balance 2604.33 / 2604.33 1068.50 / 1548.50 782.75 / 782.75 General: Alert, Oriented x3 Neck: No Nodes, - - no change in induration, fluctuance Microbiology Past 72 Hours 06/10/20 04:27 Mucosa - Nose - Final Laboratory Results 06/10/20 07:00: WBC 6.3, RBC 4.11 L, Hgb 12.7 L, Hct 39.9 L, MCV 97.1 H, MCH 30.9, MCHC 31.8 L, RDW Std Deviation 41.8, RDW Coeff of Rafa 11.6, Plt Count 292, MPV 8.9 06/10/20 07:00: Sodium 140, Potassium 4.1, Chloride 106, Carbon Dioxide 30.0, Anion Gap 4 L, BUN 26 H, Creatinine 1.30, Estim Creat Clear Calc 78.54, Est GFR (MDRD) Af Amer 74, Est GFR (MDRD) Non-Af 61, BUN/Creatinine Ratio 20.0, Glucose 103, Calcium 8.3 L Current Medications Acetaminophen (Acetaminophen 325 Mg Tablet) 650 mg PO Q6H PRN PRN PRN Reason: Pain Score 1-10/Temp > 100.7 F Last Admin: 06/09/20 17:35 Dose: 650 mg Documented by: Atorvastatin Calcium (Atorvastatin Calcium 10 Mg Tablet) 10 mg PO QHS [facility] Last Admin: 06/09/20 21:44 Dose: 10 mg Documented by: Hydralazine HCl (Hydralazine 20 Mg/Ml Vial) 10 mg IV Q6H PRN PRN PRN Reason: for SBP>160 Last Admin: 06/08/20 18:16 Dose: 10 mg Documented by: Ampicillin Sodium/Sulbactam (Sodium 3 gm/ Sodium Chloride) 112 mls @ 150 mls/hr IV Q8 [facility] Last Infusion: 06/10/20 06:49 Dose: Infused Documented by: Sodium Chloride () 250 mls @ 15 mls/hr IV .[id number] PRN PRN Reason: Saline Flush Last Infusion: 06/10/20 07:22 Dose: 0 mls/hr Documented by: Sodium Chloride () 250 mls @ 15 mls/hr IV .[id number] PRN PRN Reason: Additional IVPB Infusion Ketorolac Tromethamine (Ketorolac 30 Mg/Ml Syringe) 30 mg IV Q8 [facility] Stop: 06/12/20 22:01 Last Admin: 06/10/20 05:50 Dose: 30 mg Documented by: Lisinopril (Lisinopril 40 Mg Tablet) 40 mg PO DAILY [facility] Last Admin: 06/09/20 09:42 Dose: 40 mg Documented by: Nutritional Formula (Lactose Free) (Ensure Enlive 120 Ml Liquid) 120 ml PO 4X/DAY [facility] Last Admin: 06/09/20 21:46 Dose: Not Given Documented by: Ondansetron HCl (Ondansetron 4 Mg/2 Ml Vial) 4 mg IV Q8H PRN PRN PRN Reason: NAUSEA/VOMITING Oxycodone HCl (Oxycodone 5 Mg Tablet) 5 mg PO Q4H PRN PRN PRN Reason: Pain Score 4-5 Last Admin: 06/07/20 15:48 Dose: 5 mg Documented by: Pantoprazole Sodium (Pantoprazole Sodium 40 Mg Tablet) 40 mg PO DAILY [facility] Last Admin: 06/09/20 09:42 Dose: 40 mg Documented by: Senna/Docusate Sodium (Senna/Docusate Sodium 1 Tablet) 2 tablet PO BID PRN PRN PRN Reason: Constipation Sodium Chloride (0.9% Saline Lock 10 Ml Syringe) 10 - 40 ml IV UD PRN PRN Reason: SALINE FLUSH Last Admin: 06/10/20 05:50 Dose: 10 ml Documented by: Zolpidem Tartrate (Zolpidem Tartrate 5 Mg Tablet) 5 mg PO QHS PRN PRN PRN Reason: INSOMNIA Medical Necessity - Tobacco Use Smoking Status: Former smoker Tobacco Use: Chew Assessment/Plan All Active Problems Right submandibular abscess (Acute) 55 year old male with right submandibular abscess -OMFS - unlikely odontogenic in origin -will proceed for cervical I/D today. discussed extensively with patient.
[2020-06-10] MEDS: hydrALAZINE 20 MG/ML Vial 10 MG IV (11:19)
[2020-06-10] MEDS: Lactated Ringers 1,000 ML 100 ML IV (12:40)
--- NOTE | 2020-06-10 13:10 | PCM.OPRPT ---
Problem List (1) Right submandibular abscess Status: Acute Report of Operation Date of Procedure: 06/10/20 Pre-Operative Diagnosis: right submandibular abscess Post-Operative Diagnosis: right submandibular abscess Surgery/Procedure Performed:: cervical incision and drainage, right submandibular abscess Type of Anesthesia:: General Description of Procedure: on the day of the procedure, after appropriate informed consent was obtained, the patient was brought to the operating room and placed in supine position on the operating table. he was placed under general endotracheal anesthesia by the anesthesiologist. the endotracheal tube was secured, the eyes were taped. the mid neck was injected with lidocaine/epinephrine; it was prepped and draped in sterile fashion. a 4cm transverse incision was made in the right mid-neck with a 15 blade. the platysma was divided with the bovie. a subplatysmal flap was created superiorly and bluntly. immediate pus returned and was cultured. blunt dissection proceeded medial to the right mandibular angle until all pockets were believed to be satisfactorily probed. a melina was sutured into place. hemostasis was observed. the incision was closed with 3-0 vicryl to close the platysma and subcutaneous tissues. the superficial skin was closed with 5-0 nylon. the patient was awoken from anesthesia and transferred to the PACU in stable condition.
[2020-06-10] MEDS: Lisinopril 40 MG Tablet PO (15:47)
[2020-06-10] MEDS: Pantoprazole Sodium 40 MG Tablet PO (15:47)
[2020-06-10] MEDS: Atorvastatin Calcium 10 MG Tablet PO (22:00)
[2020-06-11 05:13] VITALS: BP 129/89; PULSE 84; RESP 16; TEMP 36.6; O2SAT 95
[2020-06-11] MEDS: Ketorolac 30 MG/ML Syringe IV ×3 (05:19→21:41)
[2020-06-11] MEDS: 0.9% Saline Lock 10 ML Syringe IV (05:19)
[2020-06-11 06:11] LABS: Hematocrit 38.4 % (40-54); Hemoglobin 12.3 g/dL (13.0-16.5); Mean Corpuscular Hgb 31.1 pg (27.0-32.0); Mean Platelet Vol. 8.6 fl (6.2-12.0); Platelet Count 319 K/mm3 (150-450); RBC Distribution Width CV 11.3 % (11.6-14.6); RBC Distribution Width SD 40.7 fl (35.1-43.9); Red Blood Count 3.96 M/mm3 (4.6-6.2); White Blood Count 8.8 K/mm3 (4.4-11.0)
[2020-06-11 06:38] LABS: Anion Gap 3 (5-15); BUN 20 mg/dL (7-18); BUN/Creat Ratio 17.5 RATIO (10-20); Chloride 106 mmol/L (98-107); Creatinine, Serum 1.14 mg/dL (0.70-1.30); EST Glomerular Filtration Rate 71 mL/min (>60); Est Glom Filt Rate - Afr Amer 86 mL/min (>60); Estimated Creatinine Clearance 89.57 ml/min; Glucose 96 mg/dL (74-106); Potassium 4.1 mmol/L (3.5-5.1); Sodium Level 139 mmol/L (136-145)
--- NOTE | 2020-06-11 07:50 | PCM.PN.HOSP ---
Patient Problems: Active and Suspected Problems Right submandibular abscess (Acute) Reason for Visit: Right submandibular abscess Subjective: Underwent cervical incision and drainage, right submandibular abscess on 06/10/2020. Objective: GENERAL: cooperative HEENT: Atraumatic; surgical dressing right submandibular region EYES; Anicteric, Normal Conjunctiva NECK; supple, normal thyroid, RESPIRATORY: Diminished to auscultation CARDIOVASCULAR: Regular S1 S2, GI: soft, normoactive bowel sounds, : No Renal angle tenderness; EXTREMITIES: No edema, no clubbing, MUSCULOSKELETAL: no muscle waisting NEURO: Awake; no lateralizing signs. SKIN: No Rash PSYCH; Flat affect Vitals/I&O's: Vital Signs Temp Pulse Resp BP Pulse Ox 98 F 84 16 129/89 H 95 06/11/20 05:13 06/11/20 05:13 06/11/20 05:13 06/11/20 05:13 06/11/20 05:13 Oxygen Delivery Method Room Air Weight: 120 kg Body Mass Index (BMI) 33.0 Intake and Output for Last 24 Hours 06/09/20 06/10/20 06/11/20 23:59 23:59 23:59 Intake Total 2118.50 / 2598.50 2306.75 / 2706.75 962 / 962 Output Total 1050 / 1050 Balance 1068.50 / 1548.50 2306.75 / 2706.75 962 / 962 Microbiology Past 72 Hours 06/10/20 04:27 Mucosa - Nose - Final Laboratory Results 06/10/20 07:00: Sodium 140, Potassium 4.1, Chloride 106, Carbon Dioxide 30.0, Anion Gap 4 L, BUN 26 H, Creatinine 1.30, Estim Creat Clear Calc 78.54, Est GFR (MDRD) Af Amer 74, Est GFR (MDRD) Non-Af 61, BUN/Creatinine Ratio 20.0, Glucose 103, Calcium 8.3 L 06/11/20 06:00: WBC 8.8, RBC 3.96 L, Hgb 12.3 L, Hct 38.4 L, MCV 97.0 H, MCH 31.1, MCHC 32.0, RDW Std Deviation 40.7, RDW Coeff of Rafa 11.3 L, Plt Count 319, MPV 8.6 06/11/20 06:00: Sodium 139, Potassium 4.1, Chloride 106, Carbon Dioxide 30.0, Anion Gap 3 L, BUN 20 H, Creatinine 1.14, Estim Creat Clear Calc 89.57, Est GFR (MDRD) Af Amer 86, Est GFR (MDRD) Non-Af 71, BUN/Creatinine Ratio 17.5, Glucose 96, Calcium 8.0 L Current Medications Acetaminophen (Acetaminophen 325 Mg Tablet) 650 mg PO Q6H PRN PRN PRN Reason: Pain Score 1-10/Temp > 100.7 F Last Admin: 06/09/20 17:35 Dose: 650 mg Documented by: Atorvastatin Calcium (Atorvastatin Calcium 10 Mg Tablet) 10 mg PO QHS [facility] Last Admin: 06/10/20 22:00 Dose: 10 mg Documented by: Hydralazine HCl (Hydralazine 20 Mg/Ml Vial) 10 mg IV Q6H PRN PRN PRN Reason: for SBP>160 Last Admin: 06/10/20 11:19 Dose: 10 mg Documented by: Ampicillin Sodium/Sulbactam (Sodium 3 gm/ Sodium Chloride) 112 mls @ 150 mls/hr IV Q8 [facility] Last Infusion: 06/11/20 06:04 Dose: Infused Documented by: Sodium Chloride () 250 mls @ 15 mls/hr IV .[id number] PRN PRN Reason: Saline Flush Last Infusion: 06/10/20 22:48 Dose: 15 mls/hr Documented by: Sodium Chloride () 250 mls @ 15 mls/hr IV .[id number] PRN PRN Reason: Additional IVPB Infusion Lactated Ringer's () 1,000 mls @ 100 mls/hr IV .Q10H [facility] Last Admin: 06/10/20 22:19 Dose: Not Given Documented by: Ketorolac Tromethamine (Ketorolac 30 Mg/Ml Syringe) 30 mg IV Q8 [facility] Stop: 06/12/20 22:01 Last Admin: 06/11/20 05:19 Dose: 30 mg Documented by: Lisinopril (Lisinopril 40 Mg Tablet) 40 mg PO DAILY [facility] Last Admin: 06/10/20 15:47 Dose: 40 mg Documented by: Nutritional Formula (Lactose Free) (Ensure Enlive 120 Ml Liquid) 120 ml PO 4X/DAY [facility] Last Admin: 06/10/20 21:58 Dose: Not Given Documented by: Ondansetron HCl (Ondansetron 4 Mg/2 Ml Vial) 4 mg IV Q8H PRN PRN PRN Reason: NAUSEA/VOMITING Oxycodone HCl (Oxycodone 5 Mg Tablet) 5 mg PO Q4H PRN PRN PRN Reason: Pain Score 4-5 Last Admin: 06/07/20 15:48 Dose: 5 mg Documented by: Pantoprazole Sodium (Pantoprazole Sodium 40 Mg Tablet) 40 mg PO DAILY [facility] Last Admin: 06/10/20 15:47 Dose: 40 mg Documented by: Senna/Docusate Sodium (Senna/Docusate Sodium 1 Tablet) 2 tablet PO BID PRN PRN PRN Reason: Constipation Sodium Chloride (0.9% Saline Lock 10 Ml Syringe) 10 - 40 ml IV UD PRN PRN Reason: SALINE FLUSH Last Admin: 06/11/20 05:19 Dose: 10 ml Documented by: Zolpidem Tartrate (Zolpidem Tartrate 5 Mg Tablet) 5 mg PO QHS PRN PRN PRN Reason: INSOMNIA STROKE Vital Signs/Narrative: Vital Signs Temp Pulse Resp BP Pulse Ox 06/11/20 05:13 98 F 84 16 129/89 H 95 Medical Necessity - Tobacco Use Smoking Status: Former smoker Tobacco Use: Chew Assessment/Plan All Active Problems Right submandibular abscess (Acute) Patient is a 55-year-old gentleman admitted with right facial pain with jaw swelling. Imaging studies obtained on admission was consistent with right submandibular abscess admitted to regular nursing floor for further management 1. Right submandibular abscess -CT of the head and neck obtained on admission demonstrated Diffuse enlargement of the right submandibular gland with findings suggestive of a localized abscess along its superior medial portion. There is evidence of surrounding inflammatory changes involving the skin and subcutaneous tissues. This extends into the medial aspect of the right mandible. Enlarged lymph nodes. Patient started on broad-spectrum antibiotic therapy with consultation placed to ENT who recommended consultation to be placed to maxillofacial surgery. Dr. Pandya maxillofacial surgeon is out of town. We will continue with current antibiotics and if patient condition worsens patient may need to be transferred to a tertiary care center -06/09/2020. Seen still has significant induration involving the right submandibular region. Remains on broad-spectrum antibiotic therapy. Awaiting input from maxillofacial surgery. -06/10/2020Patient still has significant swelling involving the right submandibular region. Case discussed with ENT Dr. Campos plan is for patient to undergo surgical I&D 06/11/2020 underwent cervical incision and drainage, right submandibular abscess on 06/10/2020. Cultures sent, resolved pending 2. Hypertension - Blood pressure controlled, home medications continued with dose adjustment as needed 3. Dyslipidemia -Patient is on statin therapy, continued at home dose 4. GERD - PPI 5. Morbid obesity - With a BMI of 33.1 patient was counseled on weight reduction 6. DVT prophylaxis ?Low risk did encourage early ambulation Inpatient E&M: 20298 Subs Hosp L2
[2020-06-11] MEDS: Pantoprazole Sodium 40 MG Tablet PO (10:30)
[2020-06-11] MEDS: Lisinopril 40 MG Tablet PO (10:30)
[2020-06-11 11:13] VITALS: BP 162/100; PULSE 97; RESP 18; TEMP 36.7; O2SAT 93
--- NOTE | 2020-06-11 11:15 | PN_ITS ---
Patient Problems: Active and Suspected Problems Right submandibular abscess (Acute) Subjective: doing well Objective: x - Physical Exam Vitals/I&O's: Vital Signs Temp Pulse Resp BP Pulse Ox 98 F 84 16 129/89 H 95 06/11/20 05:13 06/11/20 05:13 06/11/20 05:13 06/11/20 05:13 06/11/20 05:13 Oxygen Delivery Method Room Air Weight: 120 kg Body Mass Index (BMI) 33.0 Intake and Output for Last 24 Hours 06/09/20 06/10/20 06/11/20 23:59 23:59 23:59 Intake Total 2118.50 / 2598.50 2306.75 / 2706.75 962 / 962 Output Total 1050 / 1050 Balance 1068.50 / 1548.50 2306.75 / 2706.75 962 / 962 General: Alert, Oriented x3 Oral: Moist Mucosa Neck: - - melina in right neck, in place. seropurulent drainage. Microbiology Past 72 Hours 06/10/20 Unknown Submandibular Abscess Gram Stain - Final 06/10/20 Unknown Submandibular Abscess Wound Culture - Preliminary No growth-Final to follow 06/10/20 04:27 Mucosa - Nose - Final Laboratory Results 06/11/20 06:00: WBC 8.8, RBC 3.96 L, Hgb 12.3 L, Hct 38.4 L, MCV 97.0 H, MCH 31.1, MCHC 32.0, RDW Std Deviation 40.7, RDW Coeff of Rafa 11.3 L, Plt Count 319, MPV 8.6 06/11/20 06:00: Sodium 139, Potassium 4.1, Chloride 106, Carbon Dioxide 30.0, Anion Gap 3 L, BUN 20 H, Creatinine 1.14, Estim Creat Clear Calc 89.57, Est GFR (MDRD) Af Amer 86, Est GFR (MDRD) Non-Af 71, BUN/Creatinine Ratio 17.5, Glucose 96, Calcium 8.0 L Current Medications Acetaminophen (Acetaminophen 325 Mg Tablet) 650 mg PO Q6H PRN PRN PRN Reason: Pain Score 1-10/Temp > 100.7 F Last Admin: 06/09/20 17:35 Dose: 650 mg Documented by: Atorvastatin Calcium (Atorvastatin Calcium 10 Mg Tablet) 10 mg PO QHS [facility] Last Admin: 06/10/20 22:00 Dose: 10 mg Documented by: Hydralazine HCl (Hydralazine 20 Mg/Ml Vial) 10 mg IV Q6H PRN PRN PRN Reason: for SBP>160 Last Admin: 06/10/20 11:19 Dose: 10 mg Documented by: Ampicillin Sodium/Sulbactam (Sodium 3 gm/ Sodium Chloride) 112 mls @ 150 mls/hr IV Q8 [facility] Last Infusion: 06/11/20 06:04 Dose: Infused Documented by: Sodium Chloride () 250 mls @ 15 mls/hr IV .[id number] PRN PRN Reason: Saline Flush Last Infusion: 06/10/20 22:48 Dose: 15 mls/hr Documented by: Sodium Chloride () 250 mls @ 15 mls/hr IV .[id number] PRN PRN Reason: Additional IVPB Infusion Lactated Ringer's () 1,000 mls @ 100 mls/hr IV .Q10H [facility] Last Admin: 06/11/20 10:29 Dose: Not Given Documented by: Ketorolac Tromethamine (Ketorolac 30 Mg/Ml Syringe) 30 mg IV Q8 [facility] Stop: 06/12/20 22:01 Last Admin: 06/11/20 05:19 Dose: 30 mg Documented by: Lisinopril (Lisinopril 40 Mg Tablet) 40 mg PO DAILY [facility] Last Admin: 06/11/20 10:30 Dose: 40 mg Documented by: Ondansetron HCl (Ondansetron 4 Mg/2 Ml Vial) 4 mg IV Q8H PRN PRN PRN Reason: NAUSEA/VOMITING Oxycodone HCl (Oxycodone 5 Mg Tablet) 5 mg PO Q4H PRN PRN PRN Reason: Pain Score 4-5 Last Admin: 06/07/20 15:48 Dose: 5 mg Documented by: Pantoprazole Sodium (Pantoprazole Sodium 40 Mg Tablet) 40 mg PO DAILY [facility] Last Admin: 06/11/20 10:30 Dose: 40 mg Documented by: Senna/Docusate Sodium (Senna/Docusate Sodium 1 Tablet) 2 tablet PO BID PRN PRN PRN Reason: Constipation Sodium Chloride (0.9% Saline Lock 10 Ml Syringe) 10 - 40 ml IV UD PRN PRN Reason: SALINE FLUSH Last Admin: 06/11/20 05:19 Dose: 10 ml Documented by: Zolpidem Tartrate (Zolpidem Tartrate 5 Mg Tablet) 5 mg PO QHS PRN PRN PRN Reason: INSOMNIA Medical Necessity - Tobacco Use Smoking Status: Former smoker Tobacco Use: Chew Assessment/Plan All Active Problems Right submandibular abscess (Acute) 55 year old male POD 1 s/p transcervical incision/drainage submandibular abscess -melina in right neck, in place. seropurulent drainage. notes significant reduction in pain. -may shower, may wash incision with soap/water. only needs neck dressing if actively draining. -may be discharged tomorrow am (sunday) on oral antibiotics. will follow up at [facility] sunday and drains/cultures will be managed as an outpatient.
--- NOTE | 2020-06-11 15:04 | CASEMGMT ---
RN CM in to discuss needs at discharge. Patient denies any needs at discharge. Patient to discharge home with follow-up plans in place. Patient had no further questions or concerns at this time.
[2020-06-11 20:39] VITALS: BP 158/103; PULSE 84; RESP 16; TEMP 36.8; O2SAT 96
[2020-06-11] MEDS: Atorvastatin Calcium 10 MG Tablet PO (21:41)
[2020-06-12 02:39] VITALS: BP 154/112; PULSE 70; RESP 16; TEMP 36.8; O2SAT 97
[2020-06-12] MEDS: Acetaminophen 325 MG Tablet 650 MG PO (03:56)
[2020-06-12] MEDS: Ketorolac 30 MG/ML Syringe IV (05:02)
[2020-06-12 07:34] VITALS: O2SAT 96
--- NOTE | 2020-06-12 07:48 | PCM.DC ---
- Discharge Diagnoses Current Active Problems: Current Active and Chronic Problems Right submandibular abscess (Acute) GERD (gastroesophageal reflux disease) (Chronic) Hyperlipidemia (Chronic) Hypertension (Chronic) You will use the following diet at home:: No restrictions Your food should be the consistency of: Regular Call your doctor if you observe: Fever of 101 or Higher, Uncontrolled pain Allergies/Adverse Reactions: Allergies codeine Adverse Reaction (Verified 06/07/20 12:50) Vomiting Medications to take at Discharge Ibuprofen 800 mg PO Q6H PRN PRN 06/07/20 Lisinopril [Zestril] 40 mg PO DAILY 06/07/20 Omeprazole 40 mg PO DAILY 06/07/20 Simvastatin [Zocor] 20 mg PO QHS 06/07/20 Acetaminophen [Tylenol Tablet] 650 mg PO Q6H PRN PRN tablet 06/12/20 Amoxicillin/Potassium Clav [Amox-Clav 875-125 mg Tablet] 1 ea PO BID #14 tab 06/12/20 The following prescriptions were given: Amoxicillin/Potassium Clav [Amox-Clav 875-125 mg Tablet] 1 ea PO BID #14 tab Transmission Status: Pending to [id number] Primary Care Physician: Renata Palencia DO [Primary Care Provider] - Please follow up with your Primary Care Physician in: in 2 weeks Test Results: Test results from this visit will be discussed in further detail at your follow-up appointment, if applicable. Please Follow Up With: Dmitry Campos MD When: on 06/14/2020 Proposed Discharge Date: 06/12/20
--- NOTE | 2020-06-12 07:53 | DS.PCM_ITS ---
Discharge Date and Diagnosis - Problem List Patient Problems: Active and Suspected Problems Right submandibular abscess (Acute) Date of Admission: 06/07/20 Date of Discharge: 06/12/20 - Primary Discharge Diagnosis Acute Problems: Active Problems Right submandibular abscess (Acute) - Secondary Discharge Diagnosis Chronic Problems: Chronic Problems GERD (gastroesophageal reflux disease) (Chronic) Hyperlipidemia (Chronic) Hypertension (Chronic) Hospital Course and Treatment Imaging Results: Clinical Impression(s) from Imaging Studies Soft Tissue Neck CT 06/07/20 13:00 IMPRESSION: Diffuse enlargement of the right submandibular gland with findings suggestive of a localized abscess along its superior medial portion. There is evidence of surrounding inflammatory changes involving the skin and subcutaneous tissues. This extends into the medial aspect of the right mandible. Enlarged lymph nodes. Electronically Signed: Case Rose, at 13:57 EST , Service support , Summary of Care Provided: Patient is a 55-year-old gentleman admitted with right facial pain with jaw swelling. Imaging studies obtained on admission was consistent with right submandibular abscess admitted to regular nursing floor for further management 1. Right submandibular abscess -CT of the head and neck obtained on admission demonstrated Diffuse enlargement of the right submandibular gland with findings suggestive of a localized abscess along its superior medial portion. There is evidence of surrounding inflammatory changes involving the skin and subcutaneous tissues. This extends into the medial aspect of the right mandible. Enlarged lymph nodes. Patient started on broad-spectrum antibiotic therapy with consultation placed to ENT who recommended consultation to be placed to maxillofacial surgery. Dr. Pandya maxillofacial surgeon is out of town. We will continue with current antibiotics and if patient condition worsens patient may need to be transferred to a tertiary care center -06/09/2020. Seen still has significant induration involving the right submandibular region. Remains on broad-spectrum antibiotic therapy. Awaiting input from maxillofacial surgery. -06/10/2020Patient still has significant swelling involving the right submandibular region. Case discussed with ENT Dr. Campos plan is for patient to undergo surgical I&D 06/11/2020 underwent cervical incision and drainage, right submandibular abscess on 06/10/2020. Cultures sent, results pending ?06/12/2020; patient cultures had remained negative to date decision was made to discharge patient home to follow-up with Dr. Campos on 06/14/2020 for dressing changes. 2. Hypertension - Blood pressure controlled, home medications continued with dose adjustment as needed 3. Dyslipidemia -Patient is on statin therapy, continued at home dose 4. GERD - PPI 5. Morbid obesity - With a BMI of 33.1 patient was counseled on weight reduction 6. DVT prophylaxis ?Low risk did encourage early ambulation Patient Problems: Active and Suspected Problems Right submandibular abscess (Acute) Objective: GENERAL: cooperative HEENT: surgical dressing right submandibular region EYES; Anicteric, Normal Conjunctiva NECK; supple, normal thyroid, RESPIRATORY: Diminished to auscultation CARDIOVASCULAR: Regular S1 S2, GI: soft, normoactive bowel sounds, : No Renal angle tenderness; EXTREMITIES: No edema, no clubbing, MUSCULOSKELETAL: no muscle waisting NEURO: Awake; no lateralizing signs. SKIN: No Rash PSYCH; Flat affect - Physical Exam Vitals/I&O's: Vital Signs Temp Pulse Resp BP Pulse Ox 98.2 F 70 16 154/112 H 97 06/12/20 02:39 06/12/20 02:39 06/12/20 02:39 06/12/20 02:39 06/12/20 02:39 Oxygen Delivery Method Room Air Weight: 120 kg Body Mass Index (BMI) 33.0 Intake and Output for Last 24 Hours 06/10/20 06/11/20 06/12/20 23:59 23:59 23:59 Intake Total 2306.75 / 2706.75 2286 / 2736 1062 / 1062 Balance 2306.75 / 2706.75 2286 / 2736 1062 / 1062 Microbiology Past 72 Hours 06/10/20 Unknown Submandibular Abscess Gram Stain - Final 06/10/20 Unknown Submandibular Abscess Wound Culture - Preliminary No growth-Final to follow 06/10/20 04:27 Mucosa - Nose - Final Current Medications Acetaminophen (Acetaminophen 325 Mg Tablet) 650 mg PO Q6H PRN PRN PRN Reason: Pain Score 1-10/Temp > 100.7 F Last Admin: 06/12/20 03:56 Dose: 650 mg Documented by: Atorvastatin Calcium (Atorvastatin Calcium 10 Mg Tablet) 10 mg PO QHS [facility] Last Admin: 06/11/20 21:41 Dose: 10 mg Documented by: Hydralazine HCl (Hydralazine 20 Mg/Ml Vial) 10 mg IV Q6H PRN PRN PRN Reason: for SBP>160 Last Admin: 06/10/20 11:19 Dose: 10 mg Documented by: Ampicillin Sodium/Sulbactam (Sodium 3 gm/ Sodium Chloride) 112 mls @ 150 mls/hr IV Q8 [facility] Last Infusion: 06/12/20 05:53 Dose: Infused Documented by: Sodium Chloride () 250 mls @ 15 mls/hr IV .[id number] PRN PRN Reason: Saline Flush Last Infusion: 06/10/20 22:48 Dose: 15 mls/hr Documented by: Sodium Chloride () 250 mls @ 15 mls/hr IV .[id number] PRN PRN Reason: Additional IVPB Infusion Ketorolac Tromethamine (Ketorolac 30 Mg/Ml Syringe) 30 mg IV Q8 [facility] Stop: 06/12/20 22:01 Last Admin: 06/12/20 05:02 Dose: 30 mg Documented by: Lisinopril (Lisinopril 40 Mg Tablet) 40 mg PO DAILY [facility] Last Admin: 06/11/20 10:30 Dose: 40 mg Documented by: Ondansetron HCl (Ondansetron 4 Mg/2 Ml Vial) 4 mg IV Q8H PRN PRN PRN Reason: NAUSEA/VOMITING Oxycodone HCl (Oxycodone 5 Mg Tablet) 5 mg PO Q4H PRN PRN PRN Reason: Pain Score 4-5 Last Admin: 06/07/20 15:48 Dose: 5 mg Documented by: Pantoprazole Sodium (Pantoprazole Sodium 40 Mg Tablet) 40 mg PO DAILY [facility] Last Admin: 06/11/20 10:30 Dose: 40 mg Documented by: Senna/Docusate Sodium (Senna/Docusate Sodium 1 Tablet) 2 tablet PO BID PRN PRN PRN Reason: Constipation Sodium Chloride (0.9% Saline Lock 10 Ml Syringe) 10 - 40 ml IV UD PRN PRN Reason: SALINE FLUSH Last Admin: 06/11/20 05:19 Dose: 10 ml Documented by: Zolpidem Tartrate (Zolpidem Tartrate 5 Mg Tablet) 5 mg PO QHS PRN PRN PRN Reason: INSOMNIA Discharge Diet: No Restrictions Call your doctor if you observe: Fever of 101 or Higher, Uncontrolled pain Home Medications: Medications to take at Discharge Ibuprofen 800 mg PO Q6H PRN PRN 06/07/20 Lisinopril [Zestril] 40 mg PO DAILY 06/07/20 Omeprazole 40 mg PO DAILY 06/07/20 Simvastatin [Zocor] 20 mg PO QHS 06/07/20 Acetaminophen [Tylenol Tablet] 650 mg PO Q6H PRN PRN tab 06/12/20 Amoxicillin/Potassium Clav [Amox-Clav 875-125 mg Tablet] 1 ea PO BID #14 tab 06/12/20 Following Prescriptions Were Given to Patient: Amoxicillin/Potassium Clav [Amox-Clav 875-125 mg Tablet] 1 ea PO BID #14 tab Transmission Status: Received by [id number] Primary Care Physician: Renata Palencia DO [Primary Care Provider] - Please follow up with your Primary Care Physician in: in 2 weeks Please Follow Up With: Dmitry Campos MD When: on 06/14/2020 Disposition: Home Minutes spent on discharge:: 35 Patient Condition:: Stable Medical Necessity - Tobacco Use Smoking Status: Former smoker Tobacco Use: Chew Meaningful Use Info Meaningful Use Diagnoses (Choose all that apply): None applicable Inpatient E&M: 38973 Disch Hosp
[2020-06-12 10:44] VITALS: BP 160/97; PULSE 80; RESP 18; TEMP 36.6; O2SAT 97
[2020-06-12] MEDS: Pantoprazole Sodium 40 MG Tablet PO (10:47)
[2020-06-12] MEDS: Lisinopril 40 MG Tablet PO (10:47)
== END 2020-06-12 10:57 | disposition home or self-care (01) | DRG 159 ==
LOC: ED 13:22 → MS3 14:36
PROVIDERS: Otolaryngology; Admitting Provider Hospitalist; Emergency Provider Emergency Medicine; Visit Provider Internal Medicine
PROC: 0J943ZX Drainage of Right Neck Subcutaneous Tissue and Fascia, Percutaneous Approach, Diagnostic (ICD-10-PCS; principal; 2020-06-10 12:45)
DX: K12.2 Cellulitis and abscess of mouth (principal); I10 Essential (primary) hypertension; Z87.891 Personal history of nicotine dependence; E78.00 Pure hypercholesterolemia, unspecified; K21.9 Gastro-esophageal reflux disease without esophagitis; E78.5 Hyperlipidemia, unspecified; Z79.899 Other long term (current) drug therapy; E66.01 Morbid (severe) obesity due to excess calories; Z68.33 Body mass index [BMI] 33.0-33.9, adult
CPT/HCPCS: 36415; 70491; 80048; 83735; 85025; 85027; 87070; 87075; 87205; 87426; 93005; 97802; 99251; 99284; J7030; J7050; J7120; Q9967; A4216; G0463; J0295; J2405

== ENCOUNTER → 2020-07-27 08:11 | Outpatient (CLI) | payer OTHER, SELFPAY ==
[2020-06-10 11:11] VITALS: BMI 33.0
[2020-07-27 08:19] LABS: Bacteria 0 SEEN /hpf (None Seen); Mucous, Urine 0 SEEN /hpf (<or=2+); Red Blood Cells-Urine 0 SEEN /hpf (0-5)
[2020-07-27 09:47] LABS: Absolute Lymphocyte Count 0.98 X10^3/uL (0.83-4.51); Absolute Neutrophil Count 2.2 X10^3/uL (2.0-7.7); Basophil# 0.04 X10^3/uL; Eosinophil# 0.23 X10^3/uL; Eosinophils% 5.9 % (0-5); Hematocrit 45.1 % (40-54); Hemoglobin 14.3 g/dL (13.0-16.5); Lymphocyte # 0.98 X10^3/ul (4.0); Lymphocyte % 25.1 % (19-41); Mean Corp Hgb Conc 31.7 g/dL (32-36); Mean Corpuscular Hgb 30.4 pg (27.0-32.0); Mean Platelet Vol. 10.1 fl (6.2-12.0); Monocyte# 0.46 X10^3/uL; Monocyte% 11.8 % (0-10); NRBC Flagged by Analyzer 0 % (0-5); Neutrophil # 2.18 X10^3/uL (2.7-7.7); Neutrophil % 55.7 % (47-70); Platelet Count 219 K/mm3 (150-450); RBC Distribution Width CV 13.4 % (11.6-14.6); RBC Distribution Width SD 47.7 fl (35.1-43.9); White Blood Count 3.9 K/mm3 (4.4-11.0)
[2020-07-27 09:55] LABS: Color, Urine Yellow (Yellow); Glucose, Dipstick Normal (Normal); Ketone-Dipstick 5 mg/dl (Negative); Leukocyte Esterase-Dipstick 25 /ul (Negative); Nitrite-Dipstick Negative (Negative); Occult Blood-Urine 25 /ul (Negative); Protein-Dipstick 100 mg/dl (Negative); Specific Gravity, Urine 1.025 (1.002-1.030); Squamous Epithelial Cells - UA 0-5 SEEN /hpf (0-5); Urine Bilirubin Dipstick 3 mg/dL (Negative); Urine Clarity Clear (Clear); Urine Urobilinogen 4 mg/dl (Normal); White Blood Cells 0-5 SEEN /hpf (0-5)
[2020-07-27 10:02] LABS: ALB/GLOB Ratio 0.9 RATIO (0.9-2.4); AST(SGOT) 482 U/L (15-37); Alanine Aminotransfer ALT/SGPT 899 U/L (16-61); Albumin, Serum 3.5 g/dL (3.2-5.0); Alkaline Phosphatase 574 U/L (45-117); Anion Gap 7 (5-15); BUN 13 mg/dL (7-18); BUN/Creat Ratio 11.4 RATIO (10-20); Calcium,Total 8.6 mg/dL (8.5-10.1); Chloride 104 mmol/L (98-107); Cholesterol 197 mg/dL (200); Creatinine, Serum 1.14 mg/dL (0.70-1.30); EST Glomerular Filtration Rate 71 mL/min (>60); Est Glom Filt Rate - Afr Amer 86 mL/min (>60); Globulin 4.1 g/dL (2.2-4.2); Glucose 127 mg/dL (74-106); High Density Lipoprotein 42 mg/dL; Potassium 3.6 mmol/L (3.5-5.1); Protein, Total 7.6 g/dL (6.4-8.2); Sodium Level 136 mmol/L (136-145); T4 Free Direct 0.86 ng/dL (0.76-1.46); Thyroid Stim Hormone (TSH) 1.99 uIU/mL (0.358-3.74); Triglycerides 233 mg/dL; Very Low Density Lipoprotein 47 mg/dL (5-40)
== END ==
PROVIDERS: PCP Family Medicine; Referring Provider Family Medicine; Visit Provider Family Medicine
DX: E78.5 Hyperlipidemia, unspecified (principal); I10 Essential (primary) hypertension; E04.1 Nontoxic single thyroid nodule
CPT/HCPCS: 36415; 80053; 80061; 81001; 84439; 84443; 85025

== ENCOUNTER → 2020-07-29 08:16 | Outpatient (CLI) | payer OTHER, SELFPAY ==
[2020-06-10 11:11] VITALS: BMI 33.0
[2020-07-29 10:22] LABS: AST(SGOT) 239 U/L (15-37); Alanine Aminotransfer ALT/SGPT 706 U/L (16-61); Albumin, Serum 3.6 g/dL (3.2-5.0); Alkaline Phosphatase 571 U/L (45-117); Bilirubin, Direct 0.89 mg/dL (0.00-0.30); Globulin 4.2 g/dL (2.2-4.2); Protein, Total 7.8 g/dL (6.4-8.2)
[2020-07-29 12:15] LABS: Hemoglobin A1c 5.9 % (3.8-5.6)
[2020-07-30 05:07] LABS: HEPATITIS B SURFACE AG Negative (Negative); Hepatitis A AB, Total Negative (Negative); Hepatitis A IgM Antibody Negative (Negative); Hepatitis B Core AB IgM Negative (Negative); Hepatitis B Core Ab Total Negative (Negative); Hepatitis C Ab <0.1 s/co ratio (0.0-0.9)
[2020-08-02 09:55] LABS: Hep B Surface Antibodies Non Reactive (.)
== END ==
PROVIDERS: PCP Family Medicine; Referring Provider Family Medicine; Visit Provider Family Medicine
DX: R79.89 Other specified abnormal findings of blood chemistry (principal); R73.09 Other abnormal glucose
CPT/HCPCS: 36415; 80076; 83036; 86704; 86705; 86706; 86708; 86709; 86803; 87340

== ENCOUNTER → 2020-08-03 12:13 | Outpatient (CLI) | payer OTHER, SELFPAY ==
[2020-06-10 11:11] VITALS: BMI 33.0
--- NOTE | 2020-08-03 12:24 | CT_ITS ---
STUDY: CT ABDOMEN AND PELVIS WITH AND WITHOUT CONTRAST REASON FOR EXAM: Male, 55 years old. PAINLESS JAUNDICE, ELEV BILIRUBIN, ALT, AST, [id number] ISO RADIATION DOSAGE (If Supplied By Facility): CTDIvol = ( 19.84 ) mGy, DLP = ( 2234.29 ) mGycm TECHNIQUE: Transaxial images were obtained from the dome of the diaphragm to the symphysis pubis without oral contrast. 100ML ISOVUE 370 was administered. Sagittal and coronal images were reconstructed. Individualized dose optimization techniques were used for this CT. COMPARISON: None. FINDINGS: Subtle small groundglass opacities within the lung bases suggestive of multifocal pneumonitis. The visualized portions of the heart are within normal limits. Normal liver. Normal gallbladder and extrahepatic biliary system. Normal spleen. Normal pancreas. Normal bilateral adrenal glands. Small low-attenuation structure within the upper pole of the right kidney measuring 7 mm, too small to characterize and statistically consistent with a cyst. Otherwise normal right kidney. Normal left kidney. Normal visualized stomach. Normal small intestine. Normal colon. The appendix is visualized and appears normal. Normal abdominal aorta. Normal inferior vena cava. Normal retroperitoneum. Normal urinary bladder. Normal abdominal wall. There are diffuse degenerative changes of the visualized lumbar spine. CT/CT Abd/Pelvis W/WO Contrast IMPRESSION: Tiny cyst within the right kidney. Remainder of abdominal viscera are unremarkable. No acute appendicitis. No bowel obstruction. Electronically Signed: Catherine Rice MD at 0:56 EST , Service support ,
== END ==
PROVIDERS: PCP Family Medicine; Referring Provider Family Medicine; Visit Provider Family Medicine
DX: R17 Unspecified jaundice (principal)
CPT/HCPCS: 74178; Q9967

== ENCOUNTER → 2020-08-04 07:43 | Outpatient (CLI) | payer OTHER, SELFPAY ==
[2020-06-10 11:11] VITALS: BMI 33.0
--- NOTE | 2020-08-04 07:45 | RDU_ITS ---
Reason For Study: Hypertension Right Renal Artery Left Renal Artery Right renal artery ostium 157/48.2 Left renal artery ostium 138.1/63.4 RSV/EDV. PSV/EDV. Right renal artery proximal Left renal artery proximal PSV/EDV 198.5/79.3 PSV/EDV. 109.4/52.8 . Right renal artery mid 166.8/74.7 Left renal artery mid 109.4/49.1 PSV/EDV. PSV/EDV . Right renal artery distal Left renal artery distal 74.7/34.5 172.5/69.4 PSV/EDV. PSV/EDV. Right RAR 2.32. Left RAR 1.62. Right Renal Parenchyma Left Renal Parenchyma Upper Pole Medula 31.7/13.3 Left upper pole medulla 34.6/14.5 PSV/EDV. PSV/EDV . Right upper pole medulla EDR 0.42 . Left upper pole medulla EDR 0.42 . Right upper pole medulla R.I. Left upper pole medulla R.I. 0.58 . 0.58 . UP Cortex 27.3/13.6 PSV/EDV. Upper Wild Cortx 25.5/12.7 PSV/EDV. Left upper pole cortex EDR 0.50 . Right upper pole cortex EDR 0.50 . Left upper pole cortex R.I. 0.50 . Right upper pole cortex R.I. 0.50 . Left lower Pole medulla 33.1/14.7 Right lower Pole medulla 32.9/13.3 PSV/EDV . PSV/EDV . Left lower pole medulla EDR 0.44 . Right lower pole medulla EDR 0.40 . Left lower pole medulla R.I. 0.56 . Right lower pole medulla R.I. Lower Pole Cortx 18.4/8.5 PSV/EDV. 0.60 . Left lower pole cortex EDR 0.46 . Lower Pole Cortex 22.5/9.6 PSV/EDV. Left lower pole cortex R.I. 0.54 . Right lower pole cortex EDR 0.43 . Left Renal Hilar Right lower pole cortex R.I. 0.57 . LT Hilar avg 39.2/14.7 PSV/EDV . Right Renal Hilar Left hilar acceleration time 50 Right Hilar avg 43.5/17.9 PSV/EDV. m/sec. Right hilar acceleration time 20 Left Renal Dimensions m/sec. Left kidney size 12.04 cm . Right Renal Dimensions Left cortical dimension 2.19 cm . Right kidney size 11.28 cm . Right cortical dimension 2.06 cm . Aorta Proximal abdominal aorta 2.07 x 2.05 cm . Proximal abdominal aorta peak systolic velocity is 85.5 cm/sec . Distal abdominal aorta 1.85 x 1.82 cm . Distal abdominal aorta peak systolic velocity is 56 cm/sec . Interpretation Summary Dimensions of the intra-abdominal aorta appear normal, without evidence of aneurysmal dilatation. Renal artery velocities are normal bilaterally, but for the right proximal renal artery velocity, which is mildly elevated. Acceleration times are normal bilaterally. Renal-aortic ratios are also bilaterally normal. There is no evidence of hemodynamically significant renal artery stenosis on either side. Renovascular resistance appears to be bilaterally normal . The right cortical dimension is increased. The left cortical dimension is increased. Kidneys appear normal in size bilaterally. Ordering Physician: Vladimir Lowery Referring Physician: Vladimir Lowery Performed By: Ysabel Bruce RVT
--- NOTE | 2020-08-04 08:36 | US_ITS ---
STUDY: RENAL ULTRASOUND - COMPLETE REASON FOR EXAM: Male, 55 years old. HTN TECHNIQUE: Ultrasound evaluation of the kidneys was performed with real-time and static yost-scale imaging. COMPARISON: None. FINDINGS: RIGHT KIDNEY: Normal location of the right kidney, which is normal in size. The right kidney measures 12.7 cm. There is a normal cortex of the right kidney. The renal cortex measures 2.1 cm. 1 cm cyst in the midsection right kidney. There are no right renal calculi. There is no right hydronephrosis. DISTAL RIGHT URETER: There is non-visualization of the distal right ureter. There is no demonstrated right ureterovesical junction calculus. There is a visualized right ureteral jet. LEFT KIDNEY: Normal location of the left kidney, which is normal in size. The left kidney measures 11.4 cm. There is a normal cortex of the left kidney. The renal cortex measures 2.1 cm. There is no left renal mass or cyst. There are no left renal calculi. There is no left hydronephrosis. DISTAL LEFT URETER: There is non-visualization of the distal left ureter. There is no demonstrated left ureterovesical junction calculus. There is a visualized left ureteral jet. BLADDER: The distended urinary bladder has a volume of 102 ml. The empty urinary bladder has a volume of ml. There is a normal wall thickness of the distended urinary bladder. There is no demonstrated mass within the urinary bladder. There are no demonstrated bladder calculi. US/Kidney and Bladder IMPRESSION: Normal ultrasound of the kidneys and urinary bladder. Electronically Signed: Gabriel Azar MD at 9:54 EST Tel , Service support ,
--- NOTE | 2020-08-04 08:36 | US_ITS ---
STUDY: THYROID ULTRASOUND REASON FOR EXAM: Male, 55 years old. NODULE TECHNIQUE: Ultrasound evaluation of the thyroid was performed with real-time and static gómez-scale imaging. COMPARISON: CT the neck 06/07/2020 FINDINGS: RIGHT LOBE: The right lobe of the thyroid gland measures 4.0 x 2.3 x 1.5 cm. There is a homogeneous echotexture. There are no demonstrated solid, cystic or complex lesions. LEFT LOBE: The left lobe of the thyroid gland measures 3.6 x 1.4 x 1.3 cm. There is a homogeneous echotexture. There are no demonstrated solid, cystic or complex lesions. ISTHMUS: The isthmus measures 2 mm thick. . The regional lymph nodes are normal. US/Thyroid IMPRESSION: Normal ultrasound examination of the thyroid. Electronically Signed: Gabriel Azar MD at 9:58 EST Tel , Service support ,
== END ==
PROVIDERS: PCP Family Medicine; Referring Provider Family Medicine; Visit Provider Family Medicine
DX: E04.1 Nontoxic single thyroid nodule (principal); I10 Essential (primary) hypertension
CPT/HCPCS: 76536; 76770; 93975

== ENCOUNTER → 2020-08-11 10:09 | Outpatient (CLI) | payer OTHER, SELFPAY ==
[2020-06-10 11:11] VITALS: BMI 33.0
[2020-08-11 12:48] LABS: AST(SGOT) 80 U/L (15-37); Alanine Aminotransfer ALT/SGPT 212 U/L (16-61); Albumin, Serum 3.7 g/dL (3.2-5.0); Alkaline Phosphatase 356 U/L (45-117); Globulin 4.2 g/dL (2.2-4.2); Protein, Total 7.9 g/dL (6.4-8.2)
== END ==
PROVIDERS: PCP Family Medicine; Referring Provider Family Medicine; Visit Provider Family Medicine
DX: R79.89 Other specified abnormal findings of blood chemistry (principal)
CPT/HCPCS: 36415; 80076

== ENCOUNTER → 2020-08-20 08:06 | Outpatient (CLI) | payer OTHER, SELFPAY ==
[2020-06-10 11:11] VITALS: BMI 33.0
[2020-08-20 09:55] LABS: Absolute Lymphocyte Count 1.32 X10^3/uL (0.83-4.51); Basophil# 0.06 X10^3/uL; Basophil% 1.2 % (0-1); Eosinophil# 0.17 X10^3/uL; Eosinophils% 3.3 % (0-5); Hematocrit 43.5 % (40-54); Hemoglobin 14.4 g/dL (13.0-16.5); Lymphocyte # 1.32 X10^3/ul (4.0); Lymphocyte % 25.8 % (19-41); Mean Corp Hgb Conc 33.1 g/dL (32-36); Mean Corpuscular Hgb 31.5 pg (27.0-32.0); Mean Corpuscular Volume 95.2 fL (80-94); Mean Platelet Vol. 9.9 fl (6.2-12.0); Monocyte# 0.55 X10^3/uL; Monocyte% 10.8 % (0-10); NRBC Flagged by Analyzer 0 % (0-5); Neutrophil # 2.97 X10^3/uL (2.7-7.7); Neutrophil % 58.1 % (47-70); Platelet Count 244 K/mm3 (150-450); RBC Distribution Width CV 12.5 % (11.6-14.6); RBC Distribution Width SD 43.9 fl (35.1-43.9); Red Blood Count 4.57 M/mm3 (4.6-6.2); White Blood Count 5.1 K/mm3 (4.4-11.0)
[2020-08-20 10:03] LABS: Prothrombin Time (Protime)PT. 12.4 SECONDS (11.7-14.9)
[2020-08-20 10:18] LABS: AST(SGOT) 30 U/L (15-37); Alanine Aminotransfer ALT/SGPT 74 U/L (16-61); Albumin, Serum 3.8 g/dL (3.2-5.0); Alkaline Phosphatase 185 U/L (45-117); Bilirubin, Direct 0.19 mg/dL (0.00-0.30); Ferritin 241 ng/mL (26-388); Globulin 3.8 g/dL (2.2-4.2); Iron 100 ug/dL (65-175); Iron Binding Capacity,Total 397 ug/dL (250-450); PERCENT IRON SATURATION 25.2 % (15.0-55.0); Protein, Total 7.6 g/dL (6.4-8.2)
[2020-08-22 14:07] LABS: ANTINUCLEAR ANTIBODIES DIRECT Negative (Negative)
[2020-08-22 14:54] LABS: Alpha Antitrypsin Serum 109 mg/dL (101-187); Anti-Mitochondrial AB <20.0 Units (0.0-20.0)
[2020-08-23 10:53] LABS: Anti-Smooth Muscle ABS 6 Units (0-19); Ceruloplasmin 22.4 mg/dL (16.0-31.0)
== END ==
PROVIDERS: PCP Family Medicine; Referring Provider Family Medicine; Visit Provider Internal Medicine Gastroenterology
DX: R94.5 Abnormal results of liver function studies (principal); Z86.010 Personal history of colon polyps
CPT/HCPCS: 36415; 80076; 82103; 82390; 82728; 83516; 83540; 83550; 85025; 85610; 86038

== ENCOUNTER → 2020-08-26 16:22 | Outpatient (CLI) | payer OTHER, SELFPAY ==
[2020-06-10 11:11] VITALS: BMI 33.0
[2020-08-26 18:08] LABS: AST(SGOT) 25 U/L (15-37); Alanine Aminotransfer ALT/SGPT 53 U/L (16-61); Albumin, Serum 3.7 g/dL (3.2-5.0); Alkaline Phosphatase 139 U/L (45-117); Bilirubin, Direct 0.24 mg/dL (0.00-0.30); Globulin 3.4 g/dL (2.2-4.2); Protein, Total 7.1 g/dL (6.4-8.2)
== END ==
PROVIDERS: PCP Family Medicine; Referring Provider Family Medicine; Visit Provider Family Medicine
DX: R79.89 Other specified abnormal findings of blood chemistry (principal)
CPT/HCPCS: 36415; 80076

== ENCOUNTER → 2020-12-24 08:29 | Outpatient (CLI) | payer OTHER, SELFPAY ==
[2020-06-10 11:11] VITALS: BMI 33.0
[2020-12-24 10:13] LABS: Absolute Lymphocyte Count 1.97 X10^3/uL (0.83-4.51); Absolute Neutrophil Count 3.5 X10^3/uL (2.0-7.7); Basophil# 0.08 X10^3/uL; Basophil% 1.2 % (0-1); Eosinophil# 0.23 X10^3/uL; Eosinophils% 3.5 % (0-5); Hematocrit 47.5 % (40-54); Hemoglobin 15.8 g/dL (13.0-16.5); Lymphocyte # 1.97 X10^3/ul (0.83-4.51); Lymphocyte % 30.3 % (19-41); Mean Corp Hgb Conc 33.3 g/dL (32-36); Mean Corpuscular Hgb 31.7 pg (27.0-32.0); Mean Corpuscular Volume 95.4 fL (80-94); Mean Platelet Vol. 9.7 fl (6.2-12.0); Monocyte# 0.64 X10^3/uL; Monocyte% 9.8 % (0-10); NRBC Flagged by Analyzer 0 % (0-5); Neutrophil # 3.51 X10^3/uL (2.7-7.7); Platelet Count 239 K/mm3 (150-450); RBC Distribution Width CV 12.1 % (11.6-14.6); RBC Distribution Width SD 42.3 fl (35.1-43.9); Red Blood Count 4.98 M/mm3 (4.6-6.2); White Blood Count 6.5 K/mm3 (4.4-11.0)
[2020-12-24 10:37] LABS: Hemoglobin A1c 5.8 % (3.8-5.6)
[2020-12-24 10:50] LABS: AST(SGOT) 32 U/L (15-37); Alanine Aminotransfer ALT/SGPT 57 U/L (16-61); Alkaline Phosphatase 90 U/L (45-117); Anion Gap 6 (5-15); BUN 17 mg/dL (7-18); Calcium,Total 9.2 mg/dL (8.5-10.1); Chloride 103 mmol/L (98-107); Cholesterol 214 mg/dL (200); Creatinine, Serum 1.31 mg/dL (0.70-1.30); EST Glomerular Filtration Rate 61 mL/min (>60); Est Glom Filt Rate - Afr Amer 73 mL/min (>60); Globulin 4.1 g/dL (2.2-4.2); Glucose 127 mg/dL (74-106); High Density Lipoprotein 46 mg/dL; Potassium 3.6 mmol/L (3.5-5.1); Protein, Total 8.1 g/dL (6.4-8.2); Sodium Level 136 mmol/L (136-145); Triglycerides 211 mg/dL; Very Low Density Lipoprotein 42 mg/dL (5-40)
== END ==
PROVIDERS: PCP Family Medicine; Referring Provider Family Medicine; Visit Provider Family Medicine
DX: I10 Essential (primary) hypertension (principal); E78.5 Hyperlipidemia, unspecified; R73.02 Impaired glucose tolerance (oral)
CPT/HCPCS: 36415; 80053; 80061; 83036; 85025

== ENCOUNTER → 2021-06-28 08:13 | Outpatient (CLI) | payer OTHER, SELFPAY ==
[2021-06-28 08:20] LABS: Bacteria 0 SEEN /hpf (None Seen); Mucous, Urine 0 SEEN /hpf (<or=2+); Red Blood Cells-Urine 0 SEEN /hpf (0-5); White Blood Cells 0 SEEN /hpf (0-5)
[2021-06-28 10:06] LABS: Absolute Lymphocyte Count 1.41 X10^3/uL (0.83-4.51); Absolute Neutrophil Count 4.5 X10^3/uL (2.0-7.7); Basophil# 0.06 X10^3/uL; Basophil% 0.9 % (0-1); Eosinophil# 0.27 X10^3/uL; Eosinophils% 3.9 % (0-5); Hematocrit 45.9 % (40-54); Hemoglobin 15.3 g/dL (13.0-16.5); Lymphocyte # 1.41 X10^3/ul (0.83-4.51); Lymphocyte % 20.5 % (19-41); Mean Corp Hgb Conc 33.3 g/dL (32-36); Mean Corpuscular Hgb 31.5 pg (27.0-32.0); Mean Corpuscular Volume 94.6 fL (80-94); Mean Platelet Vol. 9.5 fl (6.2-12.0); Monocyte# 0.58 X10^3/uL; Monocyte% 8.4 % (0-10); NRBC Flagged by Analyzer 0 % (0-5); Neutrophil # 4.48 X10^3/uL (2.7-7.7); Neutrophil % 65.3 % (47-70); Platelet Count 250 K/mm3 (150-450); RBC Distribution Width CV 11.8 % (11.6-14.6); RBC Distribution Width SD 40.8 fl (35.1-43.9); Red Blood Count 4.85 M/mm3 (4.6-6.2); White Blood Count 6.9 K/mm3 (4.4-11.0)
[2021-06-28 10:07] LABS: Color, Urine Yellow (Yellow); Glucose, Dipstick Normal (Normal); Ketone-Dipstick Negative (Negative); Leukocyte Esterase-Dipstick Negative /ul (Negative); Nitrite-Dipstick Negative (Negative); Occult Blood-Urine Negative /ul (Negative); Protein-Dipstick 30 mg/dl (Negative); Specific Gravity, Urine 1.025 (1.002-1.030); Urine Bilirubin Dipstick Negative (Negative); Urine Clarity Clear (Clear); Urine Urobilinogen Normal (Normal)
[2021-06-28 10:26] LABS: ALB/GLOB Ratio 0.8 RATIO (0.9-2.4); AST(SGOT) 26 U/L (15-37); Alanine Aminotransfer ALT/SGPT 48 U/L (16-61); Albumin, Serum 3.5 g/dL (3.2-5.0); Alkaline Phosphatase 92 U/L (45-117); Anion Gap 7 (5-15); BUN 16 mg/dL (7-18); BUN/Creat Ratio 12.1 RATIO (10-20); Calcium,Total 8.9 mg/dL (8.5-10.1); Chloride 104 mmol/L (98-107); Cholesterol 211 mg/dL (200); Creatinine, Serum 1.32 mg/dL (0.70-1.30); EST Glomerular Filtration Rate 60 mL/min (>60); Est Glom Filt Rate - Afr Amer 73 mL/min (>60); Globulin 4.5 g/dL (2.2-4.2); Glucose 129 mg/dL (74-106); High Density Lipoprotein 44 mg/dL; Sodium Level 136 mmol/L (136-145); Thyroid Stim Hormone (TSH) 2.95 uIU/mL (0.358-3.74); Triglycerides 199 mg/dL; Very Low Density Lipoprotein 40 mg/dL (5-40)
[2021-06-28 10:27] LABS: Squamous Epithelial Cells - UA 0-5 SEEN /hpf (0-5)
== END ==
PROVIDERS: PCP Family Medicine; Referring Provider Family Medicine; Visit Provider Family Medicine
DX: I10 Essential (primary) hypertension (principal); E78.5 Hyperlipidemia, unspecified; R73.02 Impaired glucose tolerance (oral)
CPT/HCPCS: 36415; 80053; 80061; 81001; 83036; 84443; 85025

== ENCOUNTER → 2022-04-14 | Outpatient (CLI) | payer BC, SELFPAY ==
[2022-04-14 10:09] LABS: Absolute Lymphocyte Count 1.57 X10^3/uL (0.83-4.51); Absolute Neutrophil Count 3.1 X10^3/uL (2.0-7.7); Basophil# 0.04 X10^3/uL; Basophil% 0.7 % (0-1); Eosinophil# 0.24 X10^3/uL; Eosinophils% 4.4 % (0-5); Hematocrit 46.5 % (40-54); Hemoglobin 15.4 g/dL (13.0-16.5); Lymphocyte # 1.57 X10^3/ul (0.83-4.51); Lymphocyte % 28.5 % (19-41); Mean Corp Hgb Conc 33.1 g/dL (32-36); Mean Corpuscular Hgb 32.4 pg (27.0-32.0); Mean Corpuscular Volume 97.7 fL (80-94); Mean Platelet Vol. 9.9 fl (6.2-12.0); Monocyte# 0.51 X10^3/uL; Monocyte% 9.3 % (0-10); NRBC Flagged by Analyzer 0 % (0-5); Neutrophil # 3.12 X10^3/uL (2.7-7.7); Neutrophil % 56.6 % (47-70); Platelet Count 222 K/mm3 (150-450); RBC Distribution Width CV 11.8 % (11.6-14.6); RBC Distribution Width SD 42.5 fl (35.1-43.9); Red Blood Count 4.76 M/mm3 (4.6-6.2); White Blood Count 5.5 K/mm3 (4.4-11.0)
[2022-04-14 10:26] LABS: Hemoglobin A1c 5.9 % (3.8-5.6)
[2022-04-14 10:47] LABS: AST(SGOT) 24 U/L (15-37); Alanine Aminotransfer ALT/SGPT 39 U/L (16-61); Albumin, Serum 3.8 g/dL (3.2-5.0); Alkaline Phosphatase 74 U/L (45-117); Anion Gap 5 (5-15); BUN 18 mg/dL (7-18); BUN/Creat Ratio 13.7 RATIO (10-20); Chloride 106 mmol/L (98-107); Cholesterol 206 mg/dL (200); Creatinine, Serum 1.31 mg/dL (0.70-1.30); EST Glomerular Filtration Rate 60 mL/min (>60); Est Glom Filt Rate - Afr Amer 73 mL/min (>60); Glucose 126 mg/dL (74-106); High Density Lipoprotein 38 mg/dL; Potassium 4.2 mmol/L (3.5-5.1); Protein, Total 7.8 g/dL (6.4-8.2); Sodium Level 139 mmol/L (136-145); Triglycerides 188 mg/dL; Very Low Density Lipoprotein 38 mg/dL (5-40)
== END | disposition home or self-care (01) ==
LOC: MTLAB 07:50
PROVIDERS: PCP Family Medicine; Referring Provider Family Medicine; Visit Provider Family Medicine
DX: I10 Essential (primary) hypertension (principal); R73.02 Impaired glucose tolerance (oral)
CPT/HCPCS: 36415; 80053; 80061; 83036; 85025

== ENCOUNTER → 2022-04-25 | Outpatient (CLI) | payer BC, SELFPAY ==
[2022-04-25 10:10] LABS: Vitamin B12 528 pg/mL (211-911)
[2022-04-30 10:52] LABS: VITAMIN B6 41.7 ug/L (3.4-65.2); Vitamin B1, Thiamine 159.9 nmol/L (66.5-200.0)
== END | disposition home or self-care (01) ==
LOC: MTLAB 08:25
PROVIDERS: PCP Family Medicine; Referring Provider Family Medicine; Visit Provider Family Medicine
DX: G62.9 Polyneuropathy, unspecified (principal)
CPT/HCPCS: 36415; 82607; 84207; 84425

== ENCOUNTER 2022-07-03 12:42 | Outpatient (CLI) | payer BC, SELFPAY ==
--- NOTE | 2022-07-03 14:49 | NEURO ---
NCS and/or EMG Patient Report Ordering Doctor: Vladimir Lowery DATE OF SERVICE: 07/03/22 Indication: Bilateral foot pain, numbness, and tightness. Evaluate for peripheral neuropathy. Findings: Nerve conduction studies were performed in the bilateral lower extremities. The right peroneal motor study recording the extensor digitorum brevis showed a normal amplitude, normal distal latency and normal conduction velocity. No conduction block or focal slowing was present across the fibular neck. The right tibial motor study recording the abductor hallucis brevis showed a borderline amplitude, normal distal latency and mildly slowed conduction velocity. The right sural sensory response was absent. The right superficial peroneal sensory response was absent. The right medial plantar response was absent. The right lateral plantar response was absent. The left peroneal motor study recording the extensor digitorum brevis showed a normal amplitude, normal distal latency and normal conduction velocity. No conduction block or focal slowing was present across the fibular neck. The left tibial motor study recording the abductor hallucis brevis showed a borderline amplitude, normal distal latency and mildly slowed conduction velocity. The left sural sensory response was absent. The left superficial peroneal sensory response was absent. The left medial plantar response was absent. The left lateral plantar response was absent. Needle EMG of the left lower extremity muscles was performed. No denervation was present in any muscle. Distal muscles revealed motor units which were slightly large. All other motor unit morphology, activation, and recruitment patterns were normal. Needle EMG of the right lower extremity was omitted due to the paucity of findings in the left. Impression: This is an abnormal study. 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 Nasir Lazaro D.O. Multi Select Codes Neurology Neurology Interp Codes: 60785-27 Musc test done w/n test comp (interp) and 82450-28 Nr cndj test 13/> studies (interp)
== END 2022-07-03 23:59 | disposition home or self-care (01) ==
LOC: PSN 12:43
PROVIDERS: PCP Family Medicine; Visit Provider Family Medicine
DX: G62.9 Polyneuropathy, unspecified (principal); M79.671 Pain in right foot; M79.672 Pain in left foot
CPT/HCPCS: 95886; 95912

== ENCOUNTER 2022-07-14 05:47 | Day surgery (SDC) | payer BC, SELFPAY ==
[2022-07-14] VITALS (7 sets, daily range): BP systolic 106–158; BP diastolic 62–97; PULSE 97–110; RESP 16–18; TEMP 36.8–36.9; O2SAT 94–97; BMI 34.4
[2022-07-14] MEDS: Lactated Ringers 1,000 ML 15 ML IV (06:12)
--- NOTE | 2022-07-14 06:14 | HP.PCM_ITS ---
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: No Is patient in pain?: No Allergies codeine Adverse Reaction (Verified 05/18/22 07:23) Vomiting Medications lisinopril 40 mg tablet 40 mg PO DAILY 06/07/20 [History Confirmed 05/18/22] amlodipine 10 mg tablet 10 mg PO DAILY 05/18/22 [History Confirmed 05/18/22] omeprazole 40 mg capsule,delayed release 20 mg PO DAILY 05/18/22 [History Confirmed 05/18/22] rosuvastatin 20 mg tablet 20 mg PO DAILY 05/18/22 [History Confirmed 05/18/22] PFSH Medical History?(Updated 05/18/22 @ 07:18 by Sarah Jacobo) GERD (gastroesophageal reflux disease) Hyperlipidemia Hypertension Surgical History?(Updated 05/18/22 @ 07:18 by Sarah Jacobo) History of incision and drainage Family History?(Updated 05/18/22 @ 07:19 by Sarah Jacobo) Father Heart disease Hypertension High cholesterol Thyroid disorderMother CVA (cerebral vascular accident) Social History?(Updated 05/18/22 @ 07:20 by Sarah Jacobo) Smoking Status:? Never smoker alcohol intake:? current substance use type:? does not use HPI HPI HPI: 57-year-old gentleman is referred by Dr Vladimir Lowery for surgical consultation regarding gastroesophageal reflux disease.? A written copy of my surgical consult and recommendations will be returned to him.? By history the patient's symptoms of GERD started 2006.? He has 1 sour brash and globus sensation.? He does take a routine dose of omeprazole 20 mg daily but he does have recurrent of symptoms if he misses several days.? The patient's never had an upper endoscopy.? It is of note that his body weight is 262 pounds with a BMI of 30.35.? Most recent laboratory of April 14, 2022 demonstrates a white count of 5.5 with a hemoglobin 15.4 medic at 46.5 and a platelet count of 222,000.? BUN 18 and creatinine 1.31 with a glucose of 126 and a hemoglobin A1c of 5.9 Finds that [place] food and wine will cause some increased problems.? He states that last year he had a 40 pound weight loss but still if he misses a dose of his omeprazole he will since reflux problems.? He has not had any abdominal surgery. ROS General General: No weight change, appetite, fatigue, colon cancer, breast cancer or weakness HEENT HEENT: No difficulty swallowing, eye injury, eye surgery, swollen glands or hoarseness Endo Endocrine: No thyroid disease, diabetes mellitus, thyroid cancer, Hair loss, heat intolerance or cold intolerance Skin Skin: No rash or changing moles Breast Breast: No left breast lump, right breast lump, nipple discharge, breast pain, abnormal mammogram, abnormal US or breast enlargement Musc Musculoskeletal: No back problems, arthritis, rheumatoid arthritis, gout or joint pain Cardio Cardiovascular: Yes high blood pressure; No murmur, pacemaker, heart disease, atrial fibrillation, heart attack, heart stent, palpitations, shortness of breat with exertion or chest pain Psych Psychiatric: No depression, anxiety or hearing voices Resp Respiratory: No shortness of breath, No sleep apnea, No cough, No COPD, No asthma, No emphysema and No wheezing Gastro Gastrointestinal: No abdominal pain, No nausea or vomiting, No diarrhea, No constipation, No blood in stool, Yes acid reflux, No hemorrhoids, No ulcers, No gallbladder problem and No black,tarry stools Ismael Hematologic: No blood thinners, No blood disorders, No bleeding, No anemia and No blood clots Neuro Neurologic: No system reviewed and no additional complaints, except as documented, No as per HPI, No abnormal gait, No abnormal hearing, No abnormal movements, No abnormal speech, No behavioral changes, No burning sensations, No confusion, No convulsions, No disequilibrium, No dizziness, No localized weakness, No frequent falls, No headache(s), No lack of coordination, No loss of vision, No memory loss, No numbness, No other visual disturbances, No radicular pain, No restless legs, No sensory deficit, No syncope, No tingling, No tremor(s), No weakness and No other Exam Const General: cooperative, healthy appearing, comfortable and no acute distress Orientation: alert [facility] Head: normal to inspection Eyes General: appearance normal, both eyes and all related structures Neck Neck: normal visual inspection Chest Chest palpation & inspection: normal inspection of the chest Resp Effort & Inspection: normal respiratory effort Auscultation: clear to auscultation bilaterally Cardio Rate: regular rate Rhythm: regular rhythm GI Palpation: soft and no hepatosplenomegaly Other: Overweight Musc Cervical Spine: normal cervical lordosis Skin General: no rashes or lesions noted Neuro General: patient alert, patient awake and patient oriented x3 Extrem General: no calf tenderness Psych Appearance: grossly normal Assessment and Plan Assessment and Plan (1) GERD (gastroesophageal reflux disease): ?Status:?Chronic ?Plan: I recommended the patient an esophagogastroduodenoscopy with possible biopsy or polypectomy as indicated.? He is aware of the technique, benefit, risk, alternatives.? He has had an opportunity to ask and have questions answered.? We will schedule procedure at his discretion.? I very much appreciate the kind opportunity of assisting with the surgical care. We have additionally discussed conservative measures like weight loss and not eating within 2 hours of sleep and avoiding reflux inducing foods and head of bed elevation.? He has had an opportunity to participate in this discussion. Copy: Dr Vladimir Bazzi M.D., F.A.C.S The patient's history and physical has been reviewed today and is unchanged. He continues to have symptomatic gastroesophageal reflux disease. He has had an opportunity to ask and have questions answered. We will proceed with the planned esophagogastroduodenoscopy with possible biopsy or polypectomy as indicated. Rhett Bazzi M.D., F.A.C.S.
--- NOTE | 2022-07-14 07:00 | IMM_PTH ---
PATIENT: DERECK JUAREZ LOC: [facility] U#:[id number] AGE/SX: 57/M ROOM: RE07/14/[address]: Dr. Rhett Bazzi MD : 1965 BED: DIS: 07/14/2022 SPEC #: [id number] RECD: 07/14/22 12:38 STATUS: KIM REJuan #: [id number] ADAN: 07/14/22 07:[address]: Rhett Bazzi DEPT: IMMUNOHISTOCHEMISTRY RECD BY: Morena Cleveland ENTERED: 07/14/22 12:39 SP TYPE: IMMUNO OTHR DR: Dr. Vladimir Lowery MD Tissues: A - Stomach, NOS Procedures: H Pylori (initial) PHYSICIAN & INSTITUTION [place] [id number] SPECIMEN INFORMATION: Tissue Source: A ? Antral biopsy Clinical Info: Chronic GERD Specimen Number: [id number] CPT code: 66624 METHODOLOGY: Deparaffinized sections of prefer/formalin-fixed tissue or PAP/DQ stained slides are incubated with monoclonal/polyclonal antibodies/oligonucleotide probes. Localization is made via biotin free immunoperoxidase method. Appropriate controls are performed and reacted as expected. Results on target cell population are indicated in the following table: RESULTS: ANTIBODY / CLONE RESULT Block A H Pylori (polyclonal) negative These tests were developed and their performance characteristics determined by [facility]. They may not have been cleared or approved by the U.S. Food and Drug Administration. The FDA has determined that such clearance or approval is not necessary. The above immunohistochemical/dualISH markers are ordered and reviewed by the Pathologist. INTERPRETATION: A. Antral biopsy: Negative for Helicobacter pylori organisms. AM:mac 07/17/2022
--- NOTE | 2022-07-14 07:00 | EGD_PTH ---
PATIENT: DERECK JUAREZ LOC: [facility] U#:[id number] AGE/SX: 57/M ROOM: RE07/14/[address]: Dr. Rhett Bazzi MD : 1965 BED: DIS: 07/14/2022 SPEC #: [id number] RECD: 07/14/22 10:52 STATUS: KIM GORDON #: [id number] ADAN: 07/14/22 07:[address]: Rhett Bazzi DEPT: SURGICAL PATHOLOGY RECD BY: Jocelyn Edge ENTERED: 07/14/22 11:52 SP TYPE: EGD BIOPSY OT DR: Dr. Vladimir Lowery MD Tissues: A - Gastric mucous membrane B - Esophagus, NOS Procedures: Special Stain Group II Surgery Specimen Level IV Alcian Blue/PAS (control) HEADER OPERATION: EGD (MAC) and biopsy PRE-OP DIAGNOSIS: Chronic GERD TISSUE SUBMITTED: A ? Antral biopsy, H. pylori, B ? Distal esophagus biopsy MICROSCOPIC DIAGNOSIS A. Gastric antrum, biopsy: Minimal chronic inflammation. B. Distal esophagus, biopsy: Gastroesophageal junctional mucosa with chronic inflammation. Focal changes of reflux. No evidence of goblet cell metaplasia. See comment. AM:mac 07/17/2022 COMMENT A. The results of immunohistochemistry for Helicobacter pylori will be reported separately ([id number]). B. Alcian blue/PAS stain with matched control supports the above diagnosis. MICROSCOPIC DESCRIPTION Slides are reviewed. GROSS DESCRIPTION A - Received in fixative is one container labeled with the patient's name and designated antral biopsy. The specimen consists of one irregular fragment of light morgan soft tissue that measures 0.3 x 0.3 x 0.1 cm. The specimen is totally submitted in one cassette. B - Received in fixative is one container labeled with the patient's name and designated distal esophagus biopsy. The specimen consists of multiple irregular fragments of light morgan soft tissue that in aggregate measure 2 x 0.7 x 0.1 cm. The specimen is totally submitted in one cassette. / AM:mac 07/14/2022 TC:3 CPT: 24214 x2, 22410
--- NOTE | 2022-07-14 07:28 | OP.EGD_ITS ---
Patient Name: Lonnie Gomez Procedure Date: 07/14/2022 7:06 AM Date of : 1965 Age: 57 Procedure: Upper GI endoscopy Indications: Suspected gastro-esophageal reflux disease Providers: Rhett Bazzi MD Referring MD: Vladimir Lowery Medicines: See the Anesthesia note for documentation of the administered medications Complications: No immediate complications. Procedure: Pre-Anesthesia Assessment: - Prior to the procedure, a History and Physical was performed, and patient medications and allergies were reviewed. The patient's tolerance of previous anesthesia was also reviewed. The risks and benefits of the procedure and the sedation options and risks were discussed with the patient. All questions were answered, and informed consent was obtained. Prior Anticoagulants: The patient has taken no previous anticoagulant or antiplatelet agents. ASA Grade Assessment: II - A patient with mild systemic disease. After reviewing the risks and benefits, the patient was deemed in satisfactory condition to undergo the procedure. After obtaining informed consent, the endoscope was passed under direct vision. Throughout the procedure, the patient's blood pressure, pulse, and oxygen saturations were monitored continuously. The Endoscope was introduced through the mouth, and advanced to the second part of duodenum. The upper GI endoscopy was accomplished without difficulty. The patient tolerated the procedure well. Scope In: 7:15:07 AM Scope Out: 7:22:33 AM Total Procedure Duration Time 0 hours 7 minutes 26 seconds Findings: There were esophageal mucosal changes suspicious for short-segment Avilez's esophagus present at the gastroesophageal junction. The maximum longitudinal extent of these mucosal changes was 3 cm in length. Mucosa was biopsied with a cold forceps for histology. The Z-line was irregular and was found 42 cm from the incisors. Diffuse moderately erythematous mucosa without bleeding was found in the gastric antrum. Biopsies were taken with a cold forceps for histology. A medium amount of food (residue) was found in the gastric fundus. The examined duodenum was normal. A small hiatal hernia was present. Impression: - Esophageal mucosal changes suspicious for short-segment Avilez's esophagus. Biopsied. - Z-line irregular, 42 cm from the incisors. - Erythematous mucosa in the antrum. Biopsied. - A medium amount of food (residue) in the stomach. - Normal examined duodenum. Recommendation: - Discharge patient to home. - Resume previous diet. - Continue present medications. - Return to my office in 5 days. Procedure Code(s): --- Professional --- 50226, Esophagogastroduodenoscopy, flexible, transoral; with biopsy, single or multiple Diagnosis Code(s): --- Professional --- K22.8, Other specified diseases of esophagus K31.89, Other diseases of stomach and duodenum CPT copyright 2017 [employer]. All rights reserved. The codes documented in this report are preliminary and upon multiple spindle router operator review may be revised to meet current compliance requirements. Rhett Bazzi MD 07/14/2022 7:28:22 AM This report has been signed electronically. Number of Addenda: 0 Note Initiated On: 07/14/2022 7:06 AM
--- NOTE | 2022-07-14 07:29 | OP.CCLET_ITS ---
07/14/2022 Vladimir Lowery [address] [place] [address] Re : Upper GI endoscopy procedure for Lonnie Gomez Dear Dr. Lowery This procedure was performed on Thursday, July 14, 2022. My impressions and recommendations are as follows: Impressions : - Esophageal mucosal changes suspicious for short-segment Avilez's esophagus. Biopsied. - Z-line irregular, 42 cm from the incisors. - Erythematous mucosa in the antrum. Biopsied. - A medium amount of food (residue) in the stomach. - Normal examined duodenum. Recommendations : - Discharge patient to home. - Resume previous diet. - Continue present medications. - Return to my office in 5 days. My findings are described in the full procedure note, which is enclosed. If I can be of further assistance, please feel free to contact me at Doctor phone number(s): Work: . Sincerely, Rhett Bazzi MD 07/14/2022 7:28:22 AM This report has been signed electronically.
== END 2022-07-14 08:17 | disposition home or self-care (01) ==
LOC: EN 05:48 → AC 05:49
PROVIDERS: PCP Family Medicine; Referring Provider Family Medicine; Visit Provider Surgery
PROC: 0DJ08ZZ Inspection of Upper Intestinal Tract, Via Natural or Artificial Opening Endoscopic (ICD-10-PCS; CPT 43235; principal; 2022-07-14 06:55)
DX: K21.9 Gastro-esophageal reflux disease without esophagitis (principal); E78.5 Hyperlipidemia, unspecified; I10 Essential (primary) hypertension; K31.89 Other diseases of stomach and duodenum
CPT/HCPCS: 43239; 88305; 88313; 88342; J7120; J2405

== ENCOUNTER → 2022-07-21 | Outpatient (CLI) | payer BC, SELFPAY ==
[2022-07-21 09:54] LABS: Absolute Lymphocyte Count 1.66 X10^3/uL (0.83-4.51); Basophil# 0.06 X10^3/uL; Basophil% 0.9 % (0-1); Eosinophil# 0.24 X10^3/uL; Eosinophils% 3.7 % (0-5); Hematocrit 47.9 % (40-54); Hemoglobin 16.4 g/dL (13.0-16.5); Lymphocyte # 1.66 X10^3/ul (0.83-4.51); Lymphocyte % 25.3 % (19-41); Mean Corp Hgb Conc 34.2 g/dL (32-36); Mean Corpuscular Hgb 32.9 pg (27.0-32.0); Mean Platelet Vol. 9.4 fl (6.2-12.0); Monocyte% 9.1 % (0-10); NRBC Flagged by Analyzer 0 % (0-5); Neutrophil # 3.96 X10^3/uL (2.7-7.7); Neutrophil % 60.4 % (47-70); Platelet Count 233 K/mm3 (150-450); RBC Distribution Width CV 11.7 % (11.6-14.6); RBC Distribution Width SD 41.1 fl (35.1-43.9); Red Blood Count 4.99 M/mm3 (4.6-6.2); White Blood Count 6.6 K/mm3 (4.4-11.0)
[2022-07-21 10:01] LABS: Protein, Urine (Random) 46.9 mg/dL (<11.9); Protein:Creat Ratio 249 mg/g CRE (0-200)
[2022-07-21 10:22] LABS: Vitamin D,25 Hydroxy 25.5 ng/mL
[2022-07-21 10:23] LABS: ALB/GLOB Ratio 1.1 RATIO (0.9-2.4); AST(SGOT) 24 U/L (15-37); Alanine Aminotransfer ALT/SGPT 46 U/L (16-61); Alkaline Phosphatase 77 U/L (45-117); Anion Gap 6 (5-15); BUN 19 mg/dL (7-18); BUN/Creat Ratio 15.2 RATIO (10-20); Calcium,Total 8.6 mg/dL (8.5-10.1); Chloride 108 mmol/L (98-107); Cholesterol 196 mg/dL (200); Creatinine, Serum 1.25 mg/dL (0.70-1.30); EST Glomerular Filtration Rate 64 mL/min (>60); Est Glom Filt Rate - Afr Amer 77 mL/min (>60); Globulin 3.7 g/dL (2.2-4.2); Glucose 110 mg/dL (74-106); High Density Lipoprotein 48 mg/dL; Potassium 4.6 mmol/L (3.5-5.1); Protein, Total 7.7 g/dL (6.4-8.2); Sodium Level 138 mmol/L (136-145); Triglycerides 150 mg/dL; Very Low Density Lipoprotein 30 mg/dL (5-40)
== END | disposition home or self-care (01) ==
LOC: MTLAB 09:10
PROVIDERS: PCP Family Medicine; Referring Provider Family Medicine; Visit Provider Family Medicine
DX: I10 Essential (primary) hypertension (principal); R73.02 Impaired glucose tolerance (oral); R94.4 Abnormal results of kidney function studies; E78.5 Hyperlipidemia, unspecified
CPT/HCPCS: 36415; 80053; 80061; 82306; 82570; 83036; 84156; 85025

== ENCOUNTER → 2023-02-16 | Outpatient (CLI) | payer BC, SELFPAY ==
[2023-02-16 09:38] LABS: Bacteria 0 SEEN /hpf (None Seen); Mucous, Urine 0 SEEN /hpf (<or=2+); Red Blood Cells-Urine 0 SEEN /hpf (0-5); Squamous Epithelial Cells - UA 0 SEEN /hpf (0-5); White Blood Cells 0 SEEN /hpf (0-5)
[2023-02-16 10:31] LABS: Absolute Lymphocyte Count 1.15 X10^3/uL (0.83-4.51); Basophil# 0.06 X10^3/uL; Basophil% 1.2 % (0-1); Eosinophils% 7.8 % (0-5); Hematocrit 46.4 % (40-54); Hemoglobin 15.2 g/dL (13.0-16.5); Lymphocyte # 1.15 X10^3/ul (0.83-4.51); Lymphocyte % 22.4 % (19-41); Mean Corp Hgb Conc 32.8 g/dL (32-36); Mean Corpuscular Hgb 32.2 pg (27.0-32.0); Mean Corpuscular Volume 98.3 fL (80-94); Mean Platelet Vol. 9.3 fl (6.2-12.0); Monocyte% 9.7 % (0-10); NRBC Flagged by Analyzer 0 % (0-5); Neutrophil # 2.99 X10^3/uL (2.7-7.7); Neutrophil % 58.1 % (47-70); Platelet Count 206 K/mm3 (150-450); RBC Distribution Width CV 12.1 % (11.6-14.6); RBC Distribution Width SD 44.1 fl (35.1-43.9); Red Blood Count 4.72 M/mm3 (4.6-6.2); White Blood Count 5.1 K/mm3 (4.4-11.0)
[2023-02-16 11:05] LABS: Vitamin D,25 Hydroxy 40.7 ng/mL
[2023-02-16 11:09] LABS: ALB/GLOB Ratio 0.9 RATIO (0.9-2.4); AST(SGOT) 41 U/L (15-37); Alanine Aminotransfer ALT/SGPT 64 U/L (16-61); Albumin, Serum 3.6 g/dL (3.2-5.0); Alkaline Phosphatase 84 U/L (45-117); Anion Gap 4 (5-15); BUN 16 mg/dL (7-18); BUN/Creat Ratio 13.3 RATIO (10-20); Calcium,Total 8.6 mg/dL (8.5-10.1); Chloride 108 mmol/L (98-107); Cholesterol 173 mg/dL (200); EST Glomerular Filtration Rate 67 mL/min (>60); Est Glom Filt Rate - Afr Amer 81 mL/min (>60); Globulin 4.1 g/dL (2.2-4.2); Glucose 105 mg/dL (74-106); High Density Lipoprotein 50 mg/dL; Potassium 4.3 mmol/L (3.5-5.1); Protein, Total 7.7 g/dL (6.4-8.2); Sodium Level 139 mmol/L (136-145); Thyroid Stim Hormone (TSH) 3.41 uIU/mL (0.358-3.74); Triglycerides 186 mg/dL; Very Low Density Lipoprotein 37 mg/dL (5-40)
[2023-02-16 11:23] LABS: Hemoglobin A1c 5.8 % (3.8-5.6)
[2023-02-16 16:48] LABS: Color, Urine Yellow (Yellow); Glucose, Dipstick Normal (Normal); Ketone-Dipstick Negative (Negative); Leukocyte Esterase-Dipstick Negative /ul (Negative); Nitrite-Dipstick Negative (Negative); Occult Blood-Urine Negative /ul (Negative); Protein-Dipstick 30 mg/dl (Negative); Specific Gravity, Urine 1.015 (1.002-1.030); Urine Bilirubin Dipstick Negative (Negative); Urine Clarity Clear (Clear); Urine Urobilinogen Normal (Normal)
[2023-02-16 16:59] LABS: Protein, Urine (Random) 58.1 mg/dL (<11.9); Protein:Creat Ratio 332 mg/g CRE (0-200)
== END | disposition home or self-care (01) ==
PROVIDERS: PCP Family Medicine; Visit Provider Family Medicine
DX: R94.4 Abnormal results of kidney function studies (principal); I10 Essential (primary) hypertension; E78.5 Hyperlipidemia, unspecified; R73.02 Impaired glucose tolerance (oral); E55.9 Vitamin D deficiency, unspecified
CPT/HCPCS: 36415; 80053; 80061; 81001; 82306; 82570; 83036; 84156; 84443; 85025

== ENCOUNTER → 2023-08-17 | Outpatient (CLI) | payer BC, SELFPAY ==
[2023-08-17 10:04] LABS: Bacteria 0 SEEN /hpf (None Seen); Mucous, Urine 0 SEEN /hpf (<or=2+); Red Blood Cells-Urine 0 SEEN /hpf (0-5); Squamous Epithelial Cells - UA 0 SEEN /hpf (0-5); White Blood Cells 0 SEEN /hpf (0-5)
[2023-08-17 12:14] LABS: Absolute Lymphocyte Count 1.79 X10^3/uL (0.83-4.51); Absolute Neutrophil Count 3.2 X10^3/uL (2.0-7.7); Basophil# 0.08 X10^3/uL; Basophil% 1.3 % (0-1); Eosinophils% 4.9 % (0-5); Hematocrit 47.6 % (40-54); Hemoglobin 15.6 g/dL (13.0-16.5); Lymphocyte # 1.79 X10^3/ul (0.83-4.51); Lymphocyte % 29.4 % (19-41); Mean Corp Hgb Conc 32.8 g/dL (32-36); Mean Corpuscular Hgb 31.8 pg (27.0-32.0); Mean Corpuscular Volume 97.1 fL (80-94); Mean Platelet Vol. 9.7 fl (6.2-12.0); Monocyte# 0.65 X10^3/uL; Monocyte% 10.7 % (0-10); NRBC Flagged by Analyzer 0 % (0-5); Neutrophil # 3.18 X10^3/uL (2.7-7.7); Neutrophil % 52.4 % (47-70); Platelet Count 230 K/mm3 (150-450); RBC Distribution Width CV 12.1 % (11.6-14.6); RBC Distribution Width SD 43.5 fl (35.1-43.9); White Blood Count 6.1 K/mm3 (4.4-11.0)
[2023-08-17 12:17] LABS: Color, Urine Yellow (Yellow); Glucose, Dipstick Normal (Normal); Ketone-Dipstick 5 mg/dl (Negative); Leukocyte Esterase-Dipstick Negative /ul (Negative); Nitrite-Dipstick Negative (Negative); Occult Blood-Urine Negative /ul (Negative); Protein-Dipstick 30 mg/dl (Negative); Urine Bilirubin Dipstick Negative (Negative); Urine Clarity Clear (Clear); Urine Urobilinogen Normal (Normal)
[2023-08-17 12:39] LABS: ALB/GLOB Ratio 0.9 RATIO (0.9-2.4); AST(SGOT) 38 U/L (15-37); Alanine Aminotransfer ALT/SGPT 72 U/L (16-61); Albumin, Serum 3.6 g/dL (3.2-5.0); Alkaline Phosphatase 101 U/L (45-117); Anion Gap 8 (5-15); BUN 19 mg/dL (7-18); BUN/Creat Ratio 16.1 RATIO (10-20); Calcium,Total 9.2 mg/dL (8.5-10.1); Chloride 111 mmol/L (98-107); Cholesterol 183 mg/dL (200); Creatinine, Serum 1.18 mg/dL (0.70-1.30); EST Glomerular Filtration Rate 68 mL/min (>60); Est Glom Filt Rate - Afr Amer 82 mL/min (>60); Globulin 4.1 g/dL (2.2-4.2); Glucose 102 mg/dL (74-106); High Density Lipoprotein 36 mg/dL; Magnesium 2.5 mg/dL (1.6-2.6); PSA,Total - Annual Screen 3.86 ng/mL (0.00-4.00); Potassium 4.1 mmol/L (3.5-5.1); Protein, Total 7.7 g/dL (6.4-8.2); Sodium Level 142 mmol/L (136-145); Thyroid Stim Hormone (TSH) 2.43 uIU/mL (0.358-3.74); Triglycerides 289 mg/dL; Very Low Density Lipoprotein 58 mg/dL (5-40)
[2023-08-17 13:33] LABS: Hemoglobin A1c 5.8 % (3.8-5.6)
== END | disposition home or self-care (01) ==
LOC: MFPLAB 10:00
PROVIDERS: PCP Family Medicine; Visit Provider Family Medicine
DX: R73.02 Impaired glucose tolerance (oral) (principal); I10 Essential (primary) hypertension; Z12.5 Encounter for screening for malignant neoplasm of prostate
CPT/HCPCS: 36415; 80053; 80061; 81001; 83036; 83735; 84153; 84443; 85025; G0103

== ENCOUNTER → 2024-02-22 | Outpatient (CLI) | payer BC, SELFPAY ==
[2024-02-22 10:01] LABS: Bacteria 0 SEEN /hpf (None Seen); Mucous, Urine 0 SEEN /hpf (<or=2+); Red Blood Cells-Urine 0 SEEN /hpf (0-5); White Blood Cells 0 SEEN /hpf (0-5)
[2024-02-22 12:07] LABS: Color, Urine Yellow (Yellow); Glucose, Dipstick Normal (Normal); Ketone-Dipstick Negative (Negative); Leukocyte Esterase-Dipstick Negative /ul (Negative); Nitrite-Dipstick Negative (Negative); Occult Blood-Urine Negative /ul (Negative); Protein-Dipstick 30 mg/dl (Negative); Specific Gravity, Urine 1.015 (1.002-1.030); Urine Bilirubin Dipstick Negative (Negative); Urine Clarity Clear (Clear); Urine Urobilinogen Normal (Normal)
[2024-02-22 12:10] LABS: Absolute Lymphocyte Count 1.25 X10^3/uL (0.83-4.51); Absolute Neutrophil Count 3.2 X10^3/uL (2.0-7.7); Basophil# 0.08 X10^3/uL; Basophil% 1.4 % (0-1); Eosinophil# 0.58 X10^3/uL; Eosinophils% 10.2 % (0-5); Hematocrit 45.7 % (40-54); Hemoglobin 15.1 g/dL (13.0-16.5); Lymphocyte # 1.25 X10^3/ul (0.83-4.51); Lymphocyte % 21.9 % (19-41); Mean Corpuscular Hgb 31.5 pg (27.0-32.0); Mean Corpuscular Volume 95.2 fL (80-94); Mean Platelet Vol. 9.9 fl (6.2-12.0); Monocyte# 0.54 X10^3/uL; Monocyte% 9.5 % (0-10); NRBC Flagged by Analyzer 0 % (0-5); Neutrophil # 3.18 X10^3/uL (2.7-7.7); Neutrophil % 55.8 % (47-70); Platelet Count 202 K/mm3 (150-450); RBC Distribution Width CV 12.1 % (11.6-14.6); RBC Distribution Width SD 42.2 fl (35.1-43.9); White Blood Count 5.7 K/mm3 (4.4-11.0)
[2024-02-22 12:14] LABS: Squamous Epithelial Cells - UA 0-5 SEEN /hpf (0-5)
[2024-02-22 12:21] LABS: Vitamin D,25 Hydroxy 37.2 ng/mL
[2024-02-22 12:23] LABS: AST(SGOT) 48 U/L (15-37); Alanine Aminotransfer ALT/SGPT 81 U/L (16-61); Albumin, Serum 3.8 g/dL (3.2-5.0); Alkaline Phosphatase 87 U/L (45-117); Anion Gap 7 (5-15); BUN 16 mg/dL (7-18); Calcium,Total 9.1 mg/dL (8.5-10.1); Chloride 105 mmol/L (98-107); Cholesterol 161 mg/dL (200); Creatinine, Serum 1.14 mg/dL (0.70-1.30); EST Glomerular Filtration Rate 70 mL/min (>60); Est Glom Filt Rate - Afr Amer 85 mL/min (>60); Globulin 3.7 g/dL (2.2-4.2); Glucose 118 mg/dL (74-106); High Density Lipoprotein 46 mg/dL; Magnesium 2.1 mg/dL (1.6-2.6); Potassium 4.1 mmol/L (3.5-5.1); Protein, Total 7.5 g/dL (6.4-8.2); Sodium Level 138 mmol/L (136-145); Triglycerides 170 mg/dL; Very Low Density Lipoprotein 34 mg/dL (5-40)
[2024-02-22 13:22] LABS: Hemoglobin A1c 5.7 % (3.8-5.6)
== END | disposition home or self-care (01) ==
LOC: MFPLAB 09:59
PROVIDERS: PCP Family Medicine; Visit Provider Family Medicine
DX: E55.9 Vitamin D deficiency, unspecified (principal); I10 Essential (primary) hypertension; R73.02 Impaired glucose tolerance (oral)
CPT/HCPCS: 36415; 80053; 80061; 81001; 82306; 83036; 83735; 85025

== ENCOUNTER → 2024-08-29 | Outpatient (CLI) | payer BC, SELFPAY ==
[2024-08-29 16:04] LABS: Bacteria 0 SEEN /hpf (None Seen); Mucous, Urine 0 SEEN /hpf (<or=2+); Red Blood Cells-Urine 0 SEEN /hpf (0-5)
[2024-08-29 17:40] LABS: Absolute Lymphocyte Count 1.34 X10^3/uL (0.83-4.51); Absolute Neutrophil Count 4.1 X10^3/uL (2.0-7.7); Basophil# 0.05 X10^3/uL; Basophil% 0.8 % (0-1); Eosinophil# 0.19 X10^3/uL; Hemoglobin 14.8 g/dL (13.0-16.5); Lymphocyte # 1.34 X10^3/ul (0.83-4.51); Lymphocyte % 21.3 % (19-41); Mean Corp Hgb Conc 33.6 g/dL (32-36); Mean Corpuscular Hgb 32.1 pg (27.0-32.0); Mean Corpuscular Volume 95.4 fL (80-94); Mean Platelet Vol. 9.5 fl (6.2-12.0); Monocyte# 0.58 X10^3/uL; Monocyte% 9.2 % (0-10); NRBC Flagged by Analyzer 0 % (0-5); Neutrophil # 4.11 X10^3/uL (2.7-7.7); Neutrophil % 65.2 % (47-70); Platelet Count 228 K/mm3 (150-450); RBC Distribution Width CV 12.1 % (11.6-14.6); Red Blood Count 4.61 M/mm3 (4.6-6.2); White Blood Count 6.3 K/mm3 (4.4-11.0)
[2024-08-29 18:03] LABS: Vitamin D,25 Hydroxy 33.4 ng/mL
[2024-08-29 18:09] LABS: Hemoglobin A1c 5.7 % (3.8-5.6)
[2024-08-29 18:31] LABS: ALB/GLOB Ratio 0.9 RATIO (0.9-2.4); AST(SGOT) 30 U/L (15-37); Alanine Aminotransfer ALT/SGPT 67 U/L (16-61); Albumin, Serum 3.7 g/dL (3.2-5.0); Alkaline Phosphatase 88 U/L (45-117); Anion Gap 10 (5-15); BUN 16 mg/dL (7-18); BUN/Creat Ratio 12.4 RATIO (10-20); Calcium,Total 9.4 mg/dL (8.5-10.1); Chloride 103 mmol/L (98-107); Cholesterol 163 mg/dL (200); Creatinine, Serum 1.29 mg/dL (0.70-1.30); EST Glomerular Filtration Rate 61 mL/min (>60); Est Glom Filt Rate - Afr Amer 74 mL/min (>60); Glucose 104 mg/dL (74-106); High Density Lipoprotein 48 mg/dL; PSA,Total - Annual Screen 5.19 ng/mL (0.00-4.00); Protein, Total 7.7 g/dL (6.4-8.2); Sodium Level 137 mmol/L (136-145); Triglycerides 173 mg/dL; Very Low Density Lipoprotein 35 mg/dL (5-40)
[2024-08-29 19:03] LABS: Color, Urine Yellow (Yellow); Glucose, Dipstick Normal (Normal); Ketone-Dipstick 15 mg/dl (Negative); Leukocyte Esterase-Dipstick 25 /ul (Negative); Nitrite-Dipstick Negative (Negative); Occult Blood-Urine Negative /ul (Negative); Protein-Dipstick 30 mg/dl (Negative); Urine Bilirubin Dipstick Negative (Negative); Urine Clarity Clear (Clear); Urine Urobilinogen Normal (Normal)
[2024-08-29 19:19] LABS: Squamous Epithelial Cells - UA 0-5 SEEN /hpf (0-5); White Blood Cells 0-5 SEEN /hpf (0-5)
== END | disposition home or self-care (01) ==
LOC: MFPLAB 16:02
PROVIDERS: PCP Family Medicine; Referring Provider Family Medicine; Visit Provider Family Medicine
DX: I10 Essential (primary) hypertension (principal); E55.9 Vitamin D deficiency, unspecified; Z12.5 Encounter for screening for malignant neoplasm of prostate; R73.02 Impaired glucose tolerance (oral)
CPT/HCPCS: 36415; 80053; 80061; 81001; 82306; 83036; 84153; 85025; G0103